=== PATIENT | male | born 1940 | race Caucasian/White ===

== ENCOUNTER → 2023-07-29 11:23 | Outpatient (REF) | payer MEDICARE, BC, SELFPAY ==
[2023-07-29 16:20] LABS: % Basophils 1.5 % (0-2); % Eosinophils 6.7 % (0-6); % Immature Granulocytes 0.4 % (0-0.5); % Lymphocytes 15.2 % (20.5-51.1); % Monocytes 8.8 % (1.7-9.3); % Neutrophils 67.4 % (42.2-75.2); Absolute Basophils 0.1 10^3/uL (0-0.2); Absolute Eosinophils 0.6 10^3/uL (0-0.7); Absolute Lymphocytes 1.4 10^3/uL (1.2-3.4); Absolute Monocytes 0.8 10^3/uL (0.1-0.6); Hematocrit 33.6 % (39.0-52.0); Hemoglobin 10.6 g/dL (13.0-18.0); Mean Corp Hgb Conc. 31.5 g/dL (33.0-37.0); Mean Corpuscular Hgb 27.2 pg (27.0-31.0); Mean Corpuscular Volume 86.4 fL (80.0-94.0); Mean Platelet Volume 10.9 fL (7.4-10.4); Nucleated Red Blood Cells % 0 % (-); Platelet Count 425 10^3/uL (130-400); Red Blood Cell Count 3.89 10^6/uL (4.70-6.10); Red Cell Dist. Width 15.6 % (11.5-14.5); Reticulocyte Count 1.4 % (0.4-2.8)
[2023-07-29 16:36] LABS: ALT (SGPT) 11 U/L (0-50); AST (SGOT) 18 U/L (17-59); Albumin 3.2 g/dl (3.5-5.0); Alkaline Phosphatase 60 U/L (38-126); Blood Urea Nitrogen 15 mg/dl (9-20); Carbon Dioxide 27 mmol/L (22-30); Chloride 102 mmol/L (98-107); Glucose 88 mg/dl (70-99); LDH 153 U/L (120-246); Potassium 4.3 mmol/L (3.5-5.1); Sodium 134 mmol/L (135-145); Total Bilirubin 0.4 mg/dl (0.2-1.3); Total Protein 6.5 g/dl (6.3-8.2); Uric Acid 5.6 mg/dl (3.5-8.5); eGFR > 60.00
[2023-07-29 16:58] LABS: TSH 2.27 uIU/ml (0.47-4.68)
[2023-08-01 22:36] LABS: Albumin 3.13 g/dL (3.75-5.01); Alpha 1 Globulin 0.38 g/dL (0.19-0.46); Alpha 2 Globulin 0.86 g/dL (0.48-1.05); Free Kappa Light Chains,Quant 26.91 mg/L (3.30-19.40); IgA 90 mg/dL (68-408); IgG 1719 mg/dL (768-1632); IgM 28 mg/dL (35-263); Immunofixation Electrophoresis IFE Done; Kappa/Lambda Fr Light Ratio 0.07 (0.26-1.65); Total Protein-Electrophoresis 6.5 g/dL (6.3-8.2)
== END ==
LOC: HWLAB 11:23
PROVIDERS: ATTENDING PHYSICIAN Internal Medicine; FAMILY PHYSICIAN Internal Medicine
DX: C90.01 Multiple myeloma in remission (principal); R41.0 Disorientation, unspecified
CPT/HCPCS: 36415; 80053; 82784; 83521; 83615; 84155; 84165; 84443; 84550; 85025; 85045; 86334

== ENCOUNTER → 2023-08-13 10:21 | Outpatient (REF) | payer MEDICARE, BC, SELFPAY ==
[2023-08-13 12:00] LABS: % Basophils 1.5 % (0-2); % Eosinophils 10.1 % (0-6); % Immature Granulocytes 0.2 % (0-0.5); % Lymphocytes 16.5 % (20.5-51.1); % Monocytes 9.1 % (1.7-9.3); % Neutrophils 62.6 % (42.2-75.2); Absolute Basophils 0.1 10^3/uL (0-0.2); Absolute Eosinophils 0.9 10^3/uL (0-0.7); Absolute Lymphocytes 1.5 10^3/uL (1.2-3.4); Absolute Monocytes 0.8 10^3/uL (0.1-0.6); Absolute Neutrophils 5.6 10^3/uL (1.4-6.5); Hematocrit 33.6 % (39.0-52.0); Hemoglobin 10.6 g/dL (13.0-18.0); Mean Corp Hgb Conc. 31.5 g/dL (33.0-37.0); Mean Corpuscular Volume 85.5 fL (80.0-94.0); Mean Platelet Volume 11.4 fL (7.4-10.4); Nucleated Red Blood Cells % 0 % (-); Platelet Count 204 10^3/uL (130-400); Red Blood Cell Count 3.93 10^6/uL (4.70-6.10); Red Cell Dist. Width 15.6 % (11.5-14.5); White Blood Cell Count 8.9 10^3/uL (4.8-10.8)
[2023-08-13 12:16] LABS: ALT (SGPT) 11 U/L (0-50); AST (SGOT) 19 U/L (17-59); Albumin 3.4 g/dl (3.5-5.0); Alkaline Phosphatase 67 U/L (38-126); Blood Urea Nitrogen 16 mg/dl (9-20); Calcium 9.1 mg/dl (8.4-10.2); Carbon Dioxide 26 mmol/L (22-30); Chloride 104 mmol/L (98-107); Glucose 99 mg/dl (70-99); HDL Cholesterol 45 mg/dl; LDL Cholesterol, Calculated 69 mg/dl; Potassium 4.2 mmol/L (3.5-5.1); Sodium 134 mmol/L (135-145); Total Bilirubin 0.4 mg/dl (0.2-1.3); Total Cholesterol 131 mg/dl (50-199); Total Protein 6.6 g/dl (6.3-8.2); Triglyceride 87 mg/dl (10-149); Very Low Density Lipoprotein 17 mg/dl (0-30); eGFR > 60.00
[2023-08-13 12:49] LABS: Ferritin 28.3 ng/ml (17.9-464.0)
[2023-08-13 13:04] LABS: Vitamin B12 436 pg/ml (239-931)
== END ==
LOC: HWLAB 10:21
PROVIDERS: ATTENDING PHYSICIAN Internal Medicine; FAMILY PHYSICIAN Internal Medicine; OTHER PHYSICIAN Internal Medicine Hematology & Oncology; REFERRING PHYSICIAN Internal Medicine Cardiovascular Disease
DX: E78.5 Hyperlipidemia, unspecified (principal); I48.19 Other persistent atrial fibrillation; C90.01 Multiple myeloma in remission; I63.9 Cerebral infarction, unspecified
CPT/HCPCS: 36415; 80053; 80061; 82607; 82728; 84153; 85025

== ENCOUNTER → 2023-08-26 10:43 | Outpatient (REF) | payer MEDICARE, BC, SELFPAY | LOC: RAD 10:43 | PROVIDERS: ATTENDING PHYSICIAN Surgery Vascular Surgery; FAMILY PHYSICIAN Internal Medicine | DX: I77.9 Disorder of arteries and arterioles, unspecified (principal) | CPT/HCPCS: 93922; 93925 ==

== ENCOUNTER → 2023-11-04 10:05 | Outpatient (REF) | payer MEDICARE, BC, SELFPAY ==
[2023-11-04 12:33] LABS: % Immature Granulocytes 0.4 % (0-0.5); % Lymphocytes 13.8 % (20.5-51.1); % Monocytes 8.3 % (1.7-9.3); % Neutrophils 69.5 % (42.2-75.2); Absolute Basophils 0.1 10^3/uL (0-0.2); Absolute Eosinophils 0.6 10^3/uL (0-0.7); Absolute Lymphocytes 1.1 10^3/uL (1.2-3.4); Absolute Monocytes 0.7 10^3/uL (0.1-0.6); Absolute Neutrophils 5.7 10^3/uL (1.4-6.5); Hemoglobin 11.2 g/dL (13.0-18.0); Mean Corpuscular Volume 81.4 fL (80.0-94.0); Mean Platelet Volume 11.6 fL (7.4-10.4); Nucleated Red Blood Cells % 0 % (-); Platelet Count 257 10^3/uL (130-400); Red Cell Dist. Width 17.3 % (11.5-14.5); Reticulocyte Count 1.2 % (0.4-2.8); White Blood Cell Count 8.2 10^3/uL (4.8-10.8)
[2023-11-04 12:56] LABS: ALT (SGPT) 14 U/L (0-50); AST (SGOT) 21 U/L (17-59); Albumin 3.6 g/dl (3.5-5.0); Alkaline Phosphatase 83 U/L (38-126); Blood Urea Nitrogen 19 mg/dl (9-20); Calcium 9.2 mg/dl (8.4-10.2); Carbon Dioxide 27 mmol/L (22-30); Chloride 104 mmol/L (98-107); Glucose 88 mg/dl (70-99); LDH 168 U/L (120-246); Potassium 4.7 mmol/L (3.5-5.1); Sodium 136 mmol/L (135-145); Total Bilirubin 0.7 mg/dl (0.2-1.3); Total Protein 6.5 g/dl (6.3-8.2); eGFR > 60.00
[2023-11-04 13:29] LABS: TSH 2.03 uIU/ml (0.47-4.68)
[2023-11-04 13:33] LABS: Ferritin 9.7 ng/ml (17.9-464.0)
[2023-11-04 13:48] LABS: Vitamin B12 492 pg/ml (239-931)
== END ==
LOC: HWLAB 10:05
PROVIDERS: ATTENDING PHYSICIAN Internal Medicine; FAMILY PHYSICIAN Internal Medicine; OTHER PHYSICIAN Internal Medicine Hematology & Oncology; REFERRING PHYSICIAN Internal Medicine Cardiovascular Disease
DX: C90.01 Multiple myeloma in remission (principal); Z12.5 Encounter for screening for malignant neoplasm of prostate; R41.0 Disorientation, unspecified; I10 Essential (primary) hypertension
CPT/HCPCS: 36415; 80053; 82607; 82728; 82784; 83521; 83615; 84155; 84165; 84443; 84550; 85025; 85045; 86334; G0103

== ENCOUNTER → 2024-03-02 11:05 | Outpatient (REF) | payer MEDICARE, BC, SELFPAY | LOC: RAD 11:05 | PROVIDERS: ATTENDING PHYSICIAN Surgery Vascular Surgery; FAMILY PHYSICIAN Internal Medicine | DX: I77.9 Disorder of arteries and arterioles, unspecified (principal) | CPT/HCPCS: 93922; 93925 ==

== ENCOUNTER → 2024-03-03 10:06 | Outpatient (REF) | payer MEDICARE, BC, SELFPAY ==
[2024-03-03 12:12] LABS: % Basophils 1.1 % (0-2); % Eosinophils 5.3 % (0-6); % Immature Granulocytes 0.3 % (0-0.5); % Lymphocytes 10.6 % (20.5-51.1); % Monocytes 7.6 % (1.7-9.3); % Neutrophils 75.1 % (42.2-75.2); Absolute Basophils 0.1 10^3/uL (0-0.2); Absolute Eosinophils 0.4 10^3/uL (0-0.7); Absolute Lymphocytes 0.8 10^3/uL (1.2-3.4); Absolute Monocytes 0.6 10^3/uL (0.1-0.6); Absolute Neutrophils 5.5 10^3/uL (1.4-6.5); Mean Corp Hgb Conc. 34.1 g/dL (33.0-37.0); Mean Corpuscular Hgb 31.2 pg (27.0-31.0); Mean Corpuscular Volume 91.3 fL (80.0-94.0); Mean Platelet Volume 11.1 fL (7.4-10.4); Nucleated Red Blood Cells % 0 % (-); Platelet Count 205 10^3/uL (130-400); Red Blood Cell Count 4.49 10^6/uL (4.70-6.10); Red Cell Dist. Width 14.2 % (11.5-14.5); Reticulocyte Count 1.4 % (0.4-2.8); White Blood Cell Count 7.4 10^3/uL (4.8-10.8)
[2024-03-03 12:46] LABS: ALT (SGPT) 14 U/L (0-50); AST (SGOT) 21 U/L (17-59); Albumin 3.4 g/dl (3.5-5.0); Alkaline Phosphatase 95 U/L (38-126); Blood Urea Nitrogen 19 mg/dl (9-20); Carbon Dioxide 30 mmol/L (22-30); Chloride 102 mmol/L (98-107); Glucose 92 mg/dl (70-99); HDL Cholesterol 47 mg/dl; LDH 163 U/L (120-246); LDL Cholesterol, Calculated 111 mg/dl; Potassium 3.6 mmol/L (3.5-5.1); Sodium 139 mmol/L (135-145); Total Bilirubin 0.9 mg/dl (0.2-1.3); Total Cholesterol 177 mg/dl (50-199); Total Protein 6.2 g/dl (6.3-8.2); Triglyceride 97 mg/dl (10-149); Uric Acid 5.4 mg/dl (3.5-8.5); Very Low Density Lipoprotein 19 mg/dl (0-30); eGFR > 60.00
[2024-03-03 13:18] LABS: TSH 2.46 uIU/ml (0.47-4.68)
== END ==
LOC: HWLAB 10:06
PROVIDERS: ATTENDING PHYSICIAN Internal Medicine Cardiovascular Disease; FAMILY PHYSICIAN Internal Medicine; REFERRING PHYSICIAN Internal Medicine
DX: I48.19 Other persistent atrial fibrillation (principal); E78.5 Hyperlipidemia, unspecified; C90.00 Multiple myeloma not having achieved remission
CPT/HCPCS: 36415; 80053; 80061; 82728; 82784; 83521; 83615; 84155; 84165; 84443; 84550; 85025; 85045; 86334

== ENCOUNTER → 2024-06-28 12:07 | Outpatient (REF) | payer MEDICARE, BC, SELFPAY ==
[2024-06-28 16:34] LABS: % Basophils 1.1 % (0-2); % Eosinophils 7.8 % (0-6); % Immature Granulocytes 0.3 % (0-0.5); % Lymphocytes 13.4 % (20.5-51.1); % Neutrophils 70.4 % (42.2-75.2); Absolute Basophils 0.1 10^3/uL (0-0.2); Absolute Eosinophils 0.7 10^3/uL (0-0.7); Absolute Lymphocytes 1.2 10^3/uL (1.2-3.4); Absolute Monocytes 0.6 10^3/uL (0.1-0.6); Absolute Neutrophils 6.3 10^3/uL (1.4-6.5); Hematocrit 41.1 % (39.0-52.0); Mean Corp Hgb Conc. 34.1 g/dL (33.0-37.0); Mean Corpuscular Hgb 31.6 pg (27.0-31.0); Mean Corpuscular Volume 92.8 fL (80.0-94.0); Mean Platelet Volume 11.4 fL (7.4-10.4); Nucleated Red Blood Cells % 0 % (-); Platelet Count 203 10^3/uL (130-400); Red Blood Cell Count 4.43 10^6/uL (4.70-6.10); Red Cell Dist. Width 13.1 % (11.5-14.5); Reticulocyte Count 1.1 % (0.4-2.8)
[2024-06-28 16:41] LABS: ALT (SGPT) 13 U/L (0-50); AST (SGOT) 23 U/L (17-59); Albumin 3.6 g/dl (3.5-5.0); Alkaline Phosphatase 150 U/L (38-126); Blood Urea Nitrogen 16 mg/dl (9-20); Calcium 9.3 mg/dl (8.4-10.2); Carbon Dioxide 30 mmol/L (22-30); Chloride 101 mmol/L (98-107); HDL Cholesterol 54 mg/dl; Iron 142 ug/dl (49-181); LDH 193 U/L (120-246); LDL Cholesterol, Calculated 121 mg/dl; Potassium 3.9 mmol/L (3.5-5.1); Sodium 134 mmol/L (135-145); Total Bilirubin 1.3 mg/dl (0.2-1.3); Total Cholesterol 196 mg/dl (50-199); Total Protein 6.7 g/dl (6.3-8.2); Triglyceride 107 mg/dl (10-149); Very Low Density Lipoprotein 21 mg/dl (0-30); eGFR > 60.00
[2024-06-28 16:45] LABS: Erythrocyte Sed Rate 7 mm/hour (0-20)
[2024-06-28 16:50] LABS: Glucose 97 mg/dl (70-99); Percent Saturation 54 % (20-50); Total Iron Binding Capacity 262 ug/dl (261-462)
[2024-06-28 17:49] LABS: Folate 5.7 ng/ml (2.76-20); Vitamin B12 418 pg/ml (239-931)
[2024-06-30 14:05] LABS: Erythropoietin (EPO) 9 mU/mL (4-27)
[2024-06-30 20:31] LABS: Beta-2-Microglobulin 3.1 mg/L (<=3.0)
[2024-06-30 22:42] LABS: Haptoglobin 119 mg/dL (30-200)
== END ==
LOC: HWLAB 12:07
PROVIDERS: ATTENDING PHYSICIAN Internal Medicine Cardiovascular Disease; FAMILY PHYSICIAN Internal Medicine; REFERRING PHYSICIAN Internal Medicine Endocrinology, Diabetes & Metabolism
DX: E78.5 Hyperlipidemia, unspecified (principal); I48.19 Other persistent atrial fibrillation; C90.00 Multiple myeloma not having achieved remission; I10 Essential (primary) hypertension
CPT/HCPCS: 80053; 80061; 82232; 82607; 82668; 82728; 82746; 82784; 83010; 83521; 83540; 83550; 83615; 84155; 84165; 85025; 85045; 85652; 86140; 86334

== ENCOUNTER → 2024-09-18 10:56 | Outpatient (REF) | payer MEDICARE, BC, SELFPAY ==
[2024-09-18 12:39] LABS: % Basophils 0.1 % (0-2); % Eosinophils 0.5 % (0-6); % Immature Granulocytes 0.4 % (0-0.5); % Lymphocytes 9.6 % (20.5-51.1); % Monocytes 8.2 % (1.7-9.3); % Neutrophils 81.2 % (42.2-75.2); Absolute Eosinophils 0.1 10^3/uL (0-0.7); Absolute Monocytes 0.8 10^3/uL (0.1-0.6); Absolute Neutrophils 8.3 10^3/uL (1.4-6.5); Hematocrit 39.1 % (39.0-52.0); Hemoglobin 13.8 g/dL (13.0-18.0); Mean Corp Hgb Conc. 35.3 g/dL (33.0-37.0); Mean Corpuscular Hgb 32.2 pg (27.0-31.0); Mean Corpuscular Volume 91.4 fL (80.0-94.0); Mean Platelet Volume 11.1 fL (7.4-10.4); Nucleated Red Blood Cells % 0 % (-); Platelet Count 220 10^3/uL (130-400); Red Blood Cell Count 4.28 10^6/uL (4.70-6.10); Red Cell Dist. Width 13.4 % (11.5-14.5); Reticulocyte Count 1.5 % (0.4-2.8); White Blood Cell Count 10.2 10^3/uL (4.8-10.8)
[2024-09-18 13:37] LABS: ALT (SGPT) 14 U/L (0-50); AST (SGOT) 21 U/L (17-59); Alkaline Phosphatase 192 U/L (38-126); Blood Urea Nitrogen 33 mg/dl (9-20); Calcium 8.8 mg/dl (8.4-10.2); Carbon Dioxide 22 mmol/L (22-30); Chloride 107 mmol/L (98-107); Glucose 101 mg/dl (70-99); LDH 181 U/L (120-246); Potassium 3.5 mmol/L (3.5-5.1); Sodium 138 mmol/L (135-145); Total Bilirubin 0.7 mg/dl (0.2-1.3); Total Protein 7.1 g/dl (6.3-8.2); Uric Acid 5.9 mg/dl (3.5-8.5); eGFR 54.51
[2024-09-18 13:49] LABS: TSH 3.35 uIU/ml (0.47-4.68)
[2024-09-18 13:53] LABS: Ferritin 86.1 ng/ml (17.9-464.0)
== END ==
LOC: HWLAB 10:56
PROVIDERS: ATTENDING PHYSICIAN Internal Medicine; FAMILY PHYSICIAN Internal Medicine; OTHER PHYSICIAN Internal Medicine Hematology & Oncology; REFERRING PHYSICIAN Internal Medicine Cardiovascular Disease
DX: C90.00 Multiple myeloma not having achieved remission (principal); I48.21 Permanent atrial fibrillation; F05 Delirium due to known physiological condition
CPT/HCPCS: 36415; 80053; 82728; 82784; 83521; 83615; 84155; 84165; 84443; 84550; 85025; 85045; 86334

== ENCOUNTER → 2024-09-20 08:33 | Outpatient (REF) | payer MEDICARE, BC, SELFPAY | LOC: RAD 08:33 | PROVIDERS: ATTENDING PHYSICIAN Surgery Vascular Surgery; FAMILY PHYSICIAN Internal Medicine | DX: I73.9 Peripheral vascular disease, unspecified (principal); I65.21 Occlusion and stenosis of right carotid artery | CPT/HCPCS: 93880; 93922 ==

== ENCOUNTER 2025-03-06 09:34 | Inpatient (IN) | payer MEDICARE, BC, SELFPAY ==
[2025-03-02 10:06] VITALS: BP 115/76
[2025-03-02] MEDS: OMNIPAQUE 50 ML PO (11:19)
--- NOTE | 2025-03-02 11:20 | ED.GENMED ---
History of Present Illness
<Lashon Marino PA-C - Last Filed: 03/02/25 13:59>
General
Chief Complaint: Abnormal Lab Value
Source: patient and family
Exam Limitations: none
Time Seen by Provider: 03/02/25 10:58
History of Present Illness
History of Present Illness:
84yoM with a history of multiple myeloma on dexamethasone, atrial fibrillation on Eliquis, prior CVA, hypertension, hyperlipidemia presenting at the direction of his surgical team for admission. Patient has had a right inguinal hernia for many
years which has slowly gotten bigger. He was seen by Dr. Espana as an outpatient who recommended surgery. Surgery is scheduled for Wednesday. He had cardiac clearance and his desizing machine operator recommended that his Eliquis be transitioned to a heparin
infusion 2 days prior to the surgery. Patient reports decreased appetite which he attributes to the surgery and he has lost about 12 pounds. He denies any vomiting, chest pain, shortness of breath. Last bowel movement was yesterday. He had an
echocardiogram done 2 days ago which showed normal ejection fraction.
Past History
<Lashon Marino PA-C - Last Filed: 03/02/25 13:59>
Past History
ED Past Medical History: Arrthythmia, CVA and Other
Social History
Tobacco: Non-smoker
Alcohol: None
Drug: Marijuana
Personal:
Living: with family
Family History
Family History: Other (reviewed and noncontributory)
Phy Exam
<Lashon Marino PA-C - Last Filed: 03/02/25 13:59>
General Physical Exam
General Presentation: well appearing and no apparent distress
General Skin: warm and dry
General Habitus: normal and elderly
General Mental: alert
ENT Exam
ENT Exam: normocephalic
Cardiovascular Exam
Cardiovascular Exam: regular rate/rhythm
Pulmonary Exam
Pulmonary Exam: lungs clear, no respiratory distress, no rales, no crackles, no rhonchi and no wheezing
Gastrointestinal Exam
Gastrointestinal Exam: non tender, soft, non distended and other (Large R inguinal hernia noted that is non-reducible but non-tender. )
Neurological Exam
Neurological Exam: alert
[place] Coma Scale
Eye Opening: Spontaneous
Verbal Response: Oriented
Motor Response: Obeys Commands
GCS Total Score: 15
Skin Exam
Skin Exam: normal color and warm/dry
Psychiatric Exam
Psychiatric Exam: normal mood/affect
Course
<aLshon Marino PA-C - Last Filed: 03/02/25 13:59>
Orders/Labs/Results
Orders:
Orders
03/02/25 11:11
Iohexol [Omnipaque] See Protocol PO NOW STA
03/02/25 11:12
CT Abd/pel W Iv And Oral Contr Urgent
Comment:
Reason For Exam: hernia, preop planning
03/02/25 11:20
SURGICAL CONSULT Urgent
Consulting Provider: Tye Espana
Was physician already notified: Yes
03/02/25 11:30
Complete Blood Count/With Diff Urgent
Comprehensive Metabolic Panel Urgent
PTT Urgent
Prothrombin Time Urgent
03/02/25 12:45
Admit/Transfer Patient As Directed
Co-Sign Provider:
Level of Care: Observation services
Assign to:: Medical/Surgical
Physician / Group: mt
Diagnosis: incarcerated hernia
PRN Pain Medication Management As Directed
May give lesser potent ordered pain med per pt: Yes
preference::
Protocol:: Medication orders for pain may be administered in a
manner that supports deferring to patient preference
when the pt is:
- Requesting an ordered lesser potent pain medication.
Least to most potent pain medications are defined
as: acetaminophen < NSAID < tramadol < opioids
(morphine, oxycodone, hydromorphone).
- Requesting a lesser dose of the same medication IF
ORDERED.
- Requesting a less intrusive route of administration
if both routes are prescribed by the provider (PO <
IV).
03/02/25 12:46
Code Status As Directed
Resuscitation Status: Full Code
03/02/25 12:47
Complete Blood Count/No Diff Urgent
Comment: Obtain baseline before beginning heparin infusion if not already collected
Heparin Protocol- PTT Orders As Directed
PTT per Heparin protocol: -Obtain CBC and baseline PTT - if not already collected.
-Obtain PTT 6 hours from start of infusion. Then, every 6 hours until 2 consecutive
PTT's are therapeutic. Then, PTT Daily.
-With each rate change, obtain PTT every 6 hours until 2 consecutive PTT's are
therapeutic. Then, PTT Daily.
Notify MD As Directed
Notify physician if: PTT is greater than or equal to 200.
03/02/25 13:00
Heparin 47570 Units/250 ml 25,000 units in 250 ml IV PER PROTOCOL
Weight to be used for heparin protocol in kilograms (kg):: 64.6
Protocol:: Cardiac Tx/Acute Coronary
PTT Goal Range to be used:: PTT 73 to 111 seconds
Order type:: Initial
INITIAL Infusion Dose (UNITS/KG/hr) & then follow protocol:: 12 units/kg/hr
Infusion Dose in UNITS/hr & then follow protocol (UNITS/hr):: 800
INFUSION RATE in mL/hr & then follow protocol (mL/hr):: 8
PTT less than or equal to 64 seconds:: Increase rate by 200 units/hr (+ 2 mL/hr)
PTT 64.1 to 72.9 seconds:: Increase rate by 100 units/hr (+ 1 mL/hr)
PTT 73 to 111 seconds:: Target Range. No change in rate.
PTT 111.1 to 130.9 seconds:: Decrease rate by 100 units/hr (- 1 mL/hr)
PTT 131 to 199.9 seconds:: HOLD for 1 hr. Then decrease rate by 200 units/hr (- 2 mL/hr)
PTT greater than or equal to 200 seconds:: HOLD for 2 hrs & Notify Provider. Then decrease by 200 units/hr (-
2 mL/hr)
Lab follow-up:: Each change, PTT q6h until 2 consecutive are therapeutic. Then PTT
daily.
03/02/25 21:00
Heparin 90887 Units/250 ml 25,000 units in 250 ml IV PER PROTOCOL
Weight to be used for heparin protocol in kilograms (kg):: 64.6
Protocol:: Cardiac Tx/Acute Coronary
PTT Goal Range to be used:: PTT 73 to 111 seconds
Order type:: Initial
INITIAL Infusion Dose (UNITS/KG/hr) & then follow protocol:: 12 units/kg/hr
Infusion Dose in UNITS/hr & then follow protocol (UNITS/hr):: 800
INFUSION RATE in mL/hr & then follow protocol (mL/hr):: 8
PTT less than or equal to 64 seconds:: Increase rate by 200 units/hr (+ 2 mL/hr)
PTT 64.1 to 72.9 seconds:: Increase rate by 100 units/hr (+ 1 mL/hr)
PTT 73 to 111 seconds:: Target Range. No change in rate.
PTT 111.1 to 130.9 seconds:: Decrease rate by 100 units/hr (- 1 mL/hr)
PTT 131 to 199.9 seconds:: HOLD for 1 hr. Then decrease rate by 200 units/hr (- 2 mL/hr)
PTT greater than or equal to 200 seconds:: HOLD for 2 hrs & Notify Provider. Then decrease by 200 units/hr (-
2 mL/hr)
Lab follow-up:: Each change, PTT q6h until 2 consecutive are therapeutic. Then PTT
daily.
03/04/25 06:00
Complete Blood Count/No Diff Q2D
Comment: Notify MD if platelet count is <130,000 or decreases by 50% from baseline
03/06/25 06:00
Complete Blood Count/No Diff Q2D
Comment: Notify MD if platelet count is <130,000 or decreases by 50% from baseline
03/08/25 06:00
Complete Blood Count/No Diff Q2D
Comment: Notify MD if platelet count is <130,000 or decreases by 50% from baseline
03/10/25 06:00
Complete Blood Count/No Diff Q2D
Comment: Notify MD if platelet count is <130,000 or decreases by 50% from baseline
03/12/25 06:00
Complete Blood Count/No Diff Q2D
Comment: Notify MD if platelet count is <130,000 or decreases by 50% from baseline
03/14/25 06:00
Complete Blood Count/No Diff Q2D
Comment: Notify MD if platelet count is <130,000 or decreases by 50% from baseline
03/16/25 06:00
Complete Blood Count/No Diff Q2D
Comment: Notify MD if platelet count is <130,000 or decreases by 50% from baseline
03/18/25 06:00
Complete Blood Count/No Diff Q2D
Comment: Notify MD if platelet count is <130,000 or decreases by 50% from baseline
Abnormal Lab Results
03/02/25
11:30
RBC 3.84 L 10^6/uL
(4.70-6.10)
Hgb 12.0 L g/dL
(13.0-18.0)
Hct 36.1 L %
(39.0-52.0)
MCH 31.3 H pg
(27.0-31.0)
Abs Immat Gran (auto) 0.1 H 10^3/uL
(0-0.05)
Absolute Lymphs (auto) 1.0 L 10^3/uL
(1.2-3.4)
Immature Gran % 0.6 H %
(0-0.5)
Lymphocytes % 12.4 L %
(20.5-51.1)
PT 16.8 H Sec
(11.4-14.6)
Sodium 133 L mmol/L
(135-145)
Carbon Dioxide 31 H mmol/L
(22-30)
BUN 21 H mg/dl
(9-20)
Alkaline Phosphatase 419 H U/L
(38-126)
Total Protein 6.0 L g/dl
(6.3-8.2)
Albumin 3.1 L g/dl
(3.5-5.0)
03/02/25 11:30
Vital Signs
Initial and Last Documented VS:
Initial Vital Signs
Temp Pulse Resp BP Pulse Ox
97.8 F 96 18 115/76 99
03/02/25 10:06 03/02/25 10:06 03/02/25 10:06 03/02/25 10:06 03/02/25 10:06
Last Documented Vital Signs
Temp Pulse Resp BP Pulse Ox
97.8 F 87 25 129/108 99
03/02/25 10:06 03/02/25 13:34 03/02/25 13:34 03/02/25 13:34 03/02/25 13:34
<Tere Knight MD - Last Filed: 03/02/25 12:17>
Orders/Labs/Results
Orders:
Orders
03/02/25 11:11
Iohexol [Omnipaque] See Protocol PO NOW STA
03/02/25 11:12
CT Abd/pel W Iv And Oral Contr Urgent
Comment:
Reason For Exam: hernia, preop planning
03/02/25 11:20
SURGICAL CONSULT Urgent
Consulting Provider: Tye Espana
Was physician already notified: Yes
03/02/25 11:30
Complete Blood Count/With Diff Urgent
Comprehensive Metabolic Panel Urgent
PTT Urgent
Prothrombin Time Urgent
03/02/25 12:45
Admit/Transfer Patient As Directed
Co-Sign Provider:
Level of Care: Observation services
Assign to:: Medical/Surgical
Physician / Group: mt
Diagnosis: incarcerated hernia
PRN Pain Medication Management As Directed
May give lesser potent ordered pain med per pt: Yes
preference::
Protocol:: Medication orders for pain may be administered in a
manner that supports deferring to patient preference
when the pt is:
- Requesting an ordered lesser potent pain medication.
Least to most potent pain medications are defined
as: acetaminophen < NSAID < tramadol < opioids
(morphine, oxycodone, hydromorphone).
- Requesting a lesser dose of the same medication IF
ORDERED.
- Requesting a less intrusive route of administration
if both routes are prescribed by the provider (PO <
IV).
03/02/25 12:46
Code Status As Directed
Resuscitation Status: Full Code
03/02/25 12:47
Complete Blood Count/No Diff Urgent
Comment: Obtain baseline before beginning heparin infusion if not already collected
Heparin Protocol- PTT Orders As Directed
PTT per Heparin protocol: -Obtain CBC and baseline PTT - if not already collected.
-Obtain PTT 6 hours from start of infusion. Then, every 6 hours until 2 consecutive
PTT's are therapeutic. Then, PTT Daily.
-With each rate change, obtain PTT every 6 hours until 2 consecutive PTT's are
therapeutic. Then, PTT Daily.
Notify MD As Directed
Notify physician if: PTT is greater than or equal to 200.
03/02/25 13:00
Heparin 40378 Units/250 ml 25,000 units in 250 ml IV PER PROTOCOL
Weight to be used for heparin protocol in kilograms (kg):: 64.6
Protocol:: Cardiac Tx/Acute Coronary
PTT Goal Range to be used:: PTT 73 to 111 seconds
Order type:: Initial
INITIAL Infusion Dose (UNITS/KG/hr) & then follow protocol:: 12 units/kg/hr
Infusion Dose in UNITS/hr & then follow protocol (UNITS/hr):: 800
INFUSION RATE in mL/hr & then follow protocol (mL/hr):: 8
PTT less than or equal to 64 seconds:: Increase rate by 200 units/hr (+ 2 mL/hr)
PTT 64.1 to 72.9 seconds:: Increase rate by 100 units/hr (+ 1 mL/hr)
PTT 73 to 111 seconds:: Target Range. No change in rate.
PTT 111.1 to 130.9 seconds:: Decrease rate by 100 units/hr (- 1 mL/hr)
PTT 131 to 199.9 seconds:: HOLD for 1 hr. Then decrease rate by 200 units/hr (- 2 mL/hr)
PTT greater than or equal to 200 seconds:: HOLD for 2 hrs & Notify Provider. Then decrease by 200 units/hr (-
2 mL/hr)
Lab follow-up:: Each change, PTT q6h until 2 consecutive are therapeutic. Then PTT
daily.
03/02/25 21:00
Heparin 23864 Units/250 ml 25,000 units in 250 ml IV PER PROTOCOL
Weight to be used for heparin protocol in kilograms (kg):: 64.6
Protocol:: Cardiac Tx/Acute Coronary
PTT Goal Range to be used:: PTT 73 to 111 seconds
Order type:: Initial
INITIAL Infusion Dose (UNITS/KG/hr) & then follow protocol:: 12 units/kg/hr
Infusion Dose in UNITS/hr & then follow protocol (UNITS/hr):: 800
INFUSION RATE in mL/hr & then follow protocol (mL/hr):: 8
PTT less than or equal to 64 seconds:: Increase rate by 200 units/hr (+ 2 mL/hr)
PTT 64.1 to 72.9 seconds:: Increase rate by 100 units/hr (+ 1 mL/hr)
PTT 73 to 111 seconds:: Target Range. No change in rate.
PTT 111.1 to 130.9 seconds:: Decrease rate by 100 units/hr (- 1 mL/hr)
PTT 131 to 199.9 seconds:: HOLD for 1 hr. Then decrease rate by 200 units/hr (- 2 mL/hr)
PTT greater than or equal to 200 seconds:: HOLD for 2 hrs & Notify Provider. Then decrease by 200 units/hr (-
2 mL/hr)
Lab follow-up:: Each change, PTT q6h until 2 consecutive are therapeutic. Then PTT
daily.
03/04/25 06:00
Complete Blood Count/No Diff Q2D
Comment: Notify MD if platelet count is <130,000 or decreases by 50% from baseline
03/06/25 06:00
Complete Blood Count/No Diff Q2D
Comment: Notify MD if platelet count is <130,000 or decreases by 50% from baseline
03/08/25 06:00
Complete Blood Count/No Diff Q2D
Comment: Notify MD if platelet count is <130,000 or decreases by 50% from baseline
03/10/25 06:00
Complete Blood Count/No Diff Q2D
Comment: Notify MD if platelet count is <130,000 or decreases by 50% from baseline
03/12/25 06:00
Complete Blood Count/No Diff Q2D
Comment: Notify MD if platelet count is <130,000 or decreases by 50% from baseline
03/14/25 06:00
Complete Blood Count/No Diff Q2D
Comment: Notify MD if platelet count is <130,000 or decreases by 50% from baseline
03/16/25 06:00
Complete Blood Count/No Diff Q2D
Comment: Notify if platelet count is <130,000 or decreases by 50% from baseline
03/18/25 06:00
Complete Blood Count/No Diff Q2D
Comment: Notify MD if platelet count is <130,000 or decreases by 50% from baseline
Abnormal Lab Results
03/02/25
11:30
RBC 3.84 L 10^6/uL
(4.70-6.10)
Hgb 12.0 L g/dL
(13.0-18.0)
Hct 36.1 L %
(39.0-52.0)
MCH 31.3 H pg
(27.0-31.0)
Abs Immat Gran (auto) 0.1 H 10^3/uL
(0-0.05)
Absolute Lymphs (auto) 1.0 L 10^3/uL
(1.2-3.4)
Immature Gran % 0.6 H %
(0-0.5)
Lymphocytes % 12.4 L %
(20.5-51.1)
PT 16.8 H Sec
(11.4-14.6)
Sodium 133 L mmol/L
(135-145)
Carbon Dioxide 31 H mmol/L
(22-30)
BUN 21 H mg/dl
(9-20)
Alkaline Phosphatase 419 H U/L
(38-126)
Total Protein 6.0 L g/dl
(6.3-8.2)
Albumin 3.1 L g/dl
(3.5-5.0)
03/02/25 11:30
Vital Signs
Initial and Last Documented VS:
Initial Vital Signs
Temp Pulse Resp BP Pulse Ox
97.8 F 96 18 115/76 99
03/02/25 10:06 03/02/25 10:06 03/02/25 10:06 03/02/25 10:06 03/02/25 10:06
Last Documented Vital Signs
Temp Pulse Resp BP Pulse Ox
97.8 F 87 25 129/108 99
03/02/25 10:06 03/02/25 13:34 03/02/25 13:34 03/02/25 13:34 03/02/25 13:34
<Lashon Marino PA-C - Last Filed: 03/02/25 13:59>
MDM/Problems Addressed
Differential Diagnosis Includes:
84yoM here for admission. Inguinal hernia repair scheduled for Wednesday. Needs heparin drip x 48 hours prior to surgery per his desizing machine operator. No obstructive symptoms. Had normal BM yesterday. VSS. Large inguinal hernia noted on exam that is
non-reducible but non-tender.
Case discussed with general surgery team who recommends CT scan and admission to the hospitalist service. Patient admitted for further management.
<Lashon Marino PA-C - Last Filed: 03/02/25 13:59>
*Pulse Oximetry
SaO2: 99
Oxygen Mode of Delivery: Room air
Patient hypoxic: no
*Critical Care Note
Total Time (30-74mins, 75-104mins- exclusive of procedures): Not Applicable
ED Attending Note
<Lashon Marino PA-C - Last Filed: 03/02/25 13:59>
-
Portions of this chart may have been created with voice recognition software.� Occasional wrong word or��sound alike� substitutions may have occurred due to the inherent limitations of voice recognition software.
<Tere Knight MD - Last Filed: 03/02/25 12:17>
ED Attending Note
Patient seen and examined by attending physician: Yes
I performed the substantive portion of visit, reviewed & personally made and approve the management plan that is documented in note by myself or ADITHYA.: Yes
ED Attending Note:
Patient appears well and comfortable. Right inguinal hernia soft and nontender. Patient is breathing comfortably.
Discharge Plan
Departure
Patient Disposition: Admit
Date of Disposition: 03/02/25
Time of Disposition: 12:10
Presentation/result/management discussed w/ accepting MD/DO: Hospitalist
Discharge Problem:
Right inguinal hernia
[2025-03-02 11:29] VITALS: BP 157/93
[2025-03-02 11:40] LABS: Hematocrit 36.1 % (39.0-52.0); Hemoglobin 12.0 g/dL (13.0-18.0); Mean Corp Hgb Conc. 33.2 g/dL (33.0-37.0); Mean Corpuscular Volume 94.0 fL (80.0-94.0); Nucleated Red Blood Cells % 0 % (-); Platelet Count 242 10^3/uL (130-400); Red Cell Dist. Width 13.7 % (11.5-14.5)
[2025-03-02 11:49] LABS: INR 1.34; PT 16.8 Sec (11.4-14.6)
[2025-03-02 11:50] LABS: APTT 30.2 Sec (23.4-35.0)
[2025-03-02 11:56] VITALS: BMI 23.0
[2025-03-02 12:00] VITALS: BP 159/89
[2025-03-02 12:07] LABS: ALT (SGPT) < 10 U/L (0-50); AST (SGOT) 21 U/L (17-59); Albumin 3.1 g/dl (3.5-5.0); Alkaline Phosphatase 419 U/L (38-126); Blood Urea Nitrogen 21 mg/dl (9-20); Calcium 8.6 mg/dl (8.4-10.2); Carbon Dioxide 31 mmol/L (22-30); Chloride 102 mmol/L (98-107); Estimated Creatinine Clearance 51 ml/min; Glucose 94 mg/dl (70-99); Potassium 4.4 mmol/L (3.5-5.1); Sodium 133 mmol/L (135-145); Total Protein 6.0 g/dl (6.3-8.2); eGFR > 60.00
--- NOTE | 2025-03-02 12:13 | HPS.HSE ---
Addendum entered and electronically signed by Silvestre Buckley MD 03/02/25 13:22:
This is an addendum to H&P written by Marlene Rangel on 03/02/25. �Patient seen and examined independently with TIGHT BARREL INSPECTOR.
84-year-old male past medical history of multiple myeloma, atrial fibrillation on Eliquis, prior CVA, hypertension, hyperlipidemia, BPH, presenting upon recommendation of his account engineer Dr. Flores for anticoagulation with heparin 2 days while Eliquis
is being held prior to planned right inguinal hernia surgery in [address] Espana of general surgery.
Last Eliquis dose this morning.��
Echocardiogram 2 days ago normal.
He has decreased appetite with 12 pound weight loss. �No abdominal pain. �Denies vomiting chest pain or shortness of breath. �Last bowel movement yesterday.
Vital signs unremarkable. �On physical examination hernia nontender and no signs of incarceration.
Labs unremarkable.
Patient to be admitted for heparin drip without bolus for stroke prevention while off of Eliquis for right inguinal hernia surgery on Wednesday.
CT abdomen pelvis pending.
General surgery consulted.
Addendum entered and electronically signed by SUDHAKAR Rojas 03/02/25 12:52:
heparin to be started at 2100, last dose eliquis was at 9am today.
Original Note:
Family Physician
-
Family Physician: Omar Calloway
Chief Complaint
-
incarcerated hernia
History of Present Illness
84yoM with a history of multiple myeloma on dexamethasone, atrial fibrillation on Eliquis, prior CVA, hypertension, hyperlipidemia presenting at the direction of his surgical team for admission. Patient has had a right inguinal hernia for many
years which has slowly gotten bigger. patient denied any pain. denied fever, chills, [place], dizzy or syncope. denied chest pain, sob. denied n,v,d. denied dysuria or hematuria. He was seen by Dr. Espana as an outpatient who recommended surgery.
Surgery is scheduled for Wednesday. He had cardiac clearance and his account engineer recommended that his Eliquis be transitioned to a heparin infusion 2 days prior to the surgery.
admitting for further management.
Medical History
Past Medical History
Past Medical History: Reports Other
Additional Past Medical History:
Abnormal aortic aneurysm, hyperlipidemia, multiple myeloma, peripheral artery disease, aortic insufficiency, hypertension, dyslipidemia, CVA, orthostatic hypotension, inguinal hernia, hypertension, CKD
Past Surgical History: Reports Other
Additional Past Surgical History:
Bilateral cataract surgery, appendectomy
Social History
Tobacco: Former Smoker
Alcohol: Occasional
Drug: None
Personal:
Living: With Family
Family History
Family History: Not pertinent
Allergies / Home Medications
Allergies reflects when Allergies were last updated in [employer].
Home Medications with original date entered in [employer]
Allergy/Medication List:
Allergies
Allergy/AdvReac Type Severity Reaction Status Date / Time
diphenhydramine AdvReac Mild Unknown Verified 03/02/25 10:03
loratadine (From Claritin) AdvReac Mild Unknown Verified 03/02/25 10:03
Home Medications
aspirin 81 mg chewable tablet 81 mg PO DAILY #30 tabs 10/31/20
docusate sodium 100 mg capsule 100 mg PO BID #60 caps 10/31/20
tamsulosin 0.4 mg capsule 0.4 mg PO HS #30 caps 10/31/20
acetaminophen 325 mg tablet 650 mg PO Q6HPRN PRN mild PAIN 03/02/25
apixaban 2.5 mg tablet (Eliquis) 2.5 mg PO BID 03/02/25
atorvastatin 10 mg tablet 5 mg PO DAILY 03/02/25
cholecalciferol (vitamin D3) 25 mcg (1,000 unit) tablet (Vitamin D3) 25 mcg PO DAILY 03/02/25
ferrous sulfate 325 mg (65 mg iron) tablet 325 mg PO BID 03/02/25
finasteride 5 mg tablet 5 mg PO DAILY 03/02/25
metoprolol tartrate 100 mg tablet (Lopressor) 100 mg PO BID 03/02/25
Review of Systems
-
Constitutional: Reports No Symptoms
EENT: Reports No Symptoms
Respiratory: Reports No Symptoms
Cardiac: Reports No Symptoms
Abdomen/GI: Reports No Symptoms
: Reports No Symptoms
Musculoskeletal: Reports No Symptoms
Skin: Reports No Symptoms
Neurological: Reports No Symptoms
Endocrine: Reports No Symptoms
Hematologic/Lymphatic: Reports No Symptoms
Psych: Reports No Symptoms
Physical Exam
Vital Signs
Vital Signs
Temp Pulse Resp BP Pulse Ox
97.8 F 84 23 159/89 99
03/02/25 10:06 03/02/25 12:00 03/02/25 12:00 03/02/25 12:00 03/02/25 12:00
Physical Exam
General: Well Developed, Well Nourished and No Apparent Distress
HEENT: NormoCephalic, Moist mucous membranes and Atraumatic
Respiratory: Clear
Cardiac: S1/S2 and Regular Rhythm; No Murmur or Rub
GI: Soft, Non Tender, Non Distended and Normal Bowel Sounds; No Organomegaly
Rectal: Deferred by Provider
Musculoskeletal: No Clubbing, No Cyanosis and No Edema
Skin: No Rash
Neuro: AO x 3 and Nonfocal/grossly intact
Psych: Calm
Laboratory Results
-
03/02/25 11:30
03/02/25 11:30
Laboratory Results
PT 16.8 Sec (11.4-14.6) H 03/02/25 11:30
INR 1.34 03/02/25 11:30
APTT 30.2 Sec (23.4-35.0) 03/02/25 11:30
Total Bilirubin 0.6 mg/dl (0.2-1.3) 03/02/25 11:30
AST 21 U/L (17-59) 03/02/25 11:30
ALT < 10 U/L (0-50) 03/02/25 11:30
Alkaline Phosphatase 419 U/L (38-126) H 03/02/25 11:30
Data Reviewed
-
Lab Data: Labs Reviewed by me
Impression/Plan
-
# concern for Right incarcerated inguinal hernia
- Plan for surgery on Wednesday
- Surgery following patient
-CT abdomen pelvis pending.
# History of A-fib
-Heparin drip continued
-hold eliquis
- Metoprolol continue
# History of CVA
- On aspirin and statin
# BPH
- Finasteride, Flomax continue
# Multiple myeloma
- On dexamethasone as outpatient
- Follows at [facility]
# DVT prophylaxis
- Heparin
# CODE STATUS
- Full code
--- NOTE | 2025-03-02 12:42 | CON.GS ---
Addendum entered and electronically signed by Tye Espana MD 03/02/25 16:34:
I saw and examined the patient independently.
The Longshore Equipment Operator's note was reviewed and I agree with the note, assessment and plan except where noted below.
Comment: This is an 84-year-old male who presents with an enlarging known incarcerated right inguinal hernia that has become more painful. He denies obstructive symptoms and has no evidence of strangulation on exam, however given his multiple
comorbidities and anticoagulation in the setting of A-fib and known perioperative strokes when off anticoagulation we will admit him for preoperative management before undertaking a repair on Wednesday.
Will plan for a robotic/open right inguinal hernia repair with mesh.
Okay for diet, n.p.o. at midnight Wednesday
No antibiotics, 2 g of Ancef on-call to the OR for Wednesday.
Cards consults, hold Eliquis. Can transition to heparin drip versus Lovenox further recommendations.
Patient and family agreeable to plan of care above.
Original Note:
Consultation
-
Date/Time Consultation Performed: 03/02/25 1210
Requesting Provider: ED
Performing Provider: Valerie Espana
Medical History
-
Chief Complaint: hernia discomfort
History of Present Illness:
Mr Turk is an 84 yo male with a h/o multiple myeloma on decadron, afib on Eliquis (LD this am), prior CVA and known right inguinal hernia who presents for ongoing discomfort and irritation to the site. He was initiallyl hesitant to pursue surgery
but notes the hernia has become more bothersome. He reports that as the day goes one, his hernia increases in size with scrotal swelling. Rest and elevation do help but with quick recurrence. He denies nausea and vomiting but does note some gradual
weight loss and anorexia. He was able to pass a regular BM yesterday.
Past Medical History
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
Past Surgical History: Appendectomy and Other (cataracts)
Social History
Tobacco: Non-Smoker
Alcohol: None
Personal:
Living: With Family
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
Family History
Family History: Reviewed & Not Pertinent
Allergies / Home Medications
Allergy/AdvReac Type Severity Reaction Status Date / Time
diphenhydramine AdvReac Mild Unknown Verified 03/02/25 10:03
loratadine (From Claritin) AdvReac Mild Unknown Verified 03/02/25 10:03
�Medication �Instructions �Recorded �Confirmed �Type
aspirin 81 mg chewable tablet 81 mg PO DAILY #30 tabs 10/31/20 03/02/25 Rx
docusate sodium 100 mg capsule 100 mg PO BID #60 caps 10/31/20 03/02/25 Rx
tamsulosin 0.4 mg capsule 0.4 mg PO HS #30 caps 10/31/20 03/02/25 Rx
acetaminophen 325 mg tablet 650 mg PO Q6HPRN PRN mild PAIN 03/02/25 03/02/25 History
apixaban 2.5 mg tablet (Eliquis) 2.5 mg PO BID 03/02/25 03/02/25 History
atorvastatin 10 mg tablet 5 mg PO DAILY 03/02/25 03/02/25 History
cholecalciferol (vitamin D3) 25 25 mcg PO DAILY 03/02/25 03/02/25 History
mcg (1,000 unit) tablet (Vitamin
D3)
ferrous sulfate 325 mg (65 mg 325 mg PO BID 03/02/25 03/02/25 History
iron) tablet
finasteride 5 mg tablet 5 mg PO DAILY 03/02/25 03/02/25 History
metoprolol tartrate 100 mg tablet 100 mg PO BID 03/02/25 03/02/25 History
(Lopressor)
Review of Systems
-
History Source: Patient and Family
All other systems: Negative unless noted
A 10 point review of systems was completed, and was negative except as per HPI.
Physical Exam
Vital Signs
Temp Pulse Resp BP Pulse Ox
97.8 F 84 23 159/89 99
03/02/25 10:06 03/02/25 12:00 03/02/25 12:00 03/02/25 12:00 03/02/25 12:00
03/01/25 03/02/25 03/03/25
06:59 06:59 06:59
Actual Weight 64.6 kg
Body Mass Index (BMI) 23.0
Lab Results
03/02/25 11:30
03/02/25 11:30
WBC 8.3 10^3/uL (4.8-10.8) 03/02/25 11:30
Hgb 12.0 g/dL (13.0-18.0) L 03/02/25 11:30
Hct 36.1 % (39.0-52.0) L 03/02/25 11:30
Plt Count 242 10^3/uL (130-400) 03/02/25 11:30
Abs Immat Gran (auto) 0.1 10^3/uL (0-0.05) H 03/02/25 11:30
Neutrophils % 72.2 % (42.2-75.2) 03/02/25 11:30
Physical Exam
General: Well Developed
HEENT: Normocephalic
Respiratory: Non Labored Respirations
GI: Soft, Non Tender and Non Distended
Genito-urinary: Inguinal Hernia (right)
Neuro: Awake, Alert and AO x 3
Psych: Calm
Data Reviewed
-
Labs: Labs Reviewed by me, Discussed with Physician, Discussed with Patient and Discussed with Family
Old Records: Reviewed
Assessment / Plan
-
84 yo male with h/o multiple myeloma on decadron, afib on Eliquis (LD this am), prior CVA who presents for management of chronically incarcerated inguinal hernia with worsening symptoms. He underwent a recent cards eval with Dr. Augusto Flores for
cardiac clearance (elevated but acceptable risk per OP note) who recommended bridging AC with IV heparin while Eliquis held for surgery as he has had prior thromboembolic events. 2D echo preformed on on 02/28/25 with normal EF and stable valvular
dz.
Plan:
Given multiple comorbid conditions, would recommend admission to hospitalist service for medical optimization
Hold Eliquis (LD this am) with plans for bridge leading up to surgery.
Plan for inguinal hernia repair Wednesday after Eliquis washout.
Ok for regular diet from surgical standpoint, NPO after MN for OR wednesday
[2025-03-02 13:34] VITALS: BP 129/108
--- NOTE | 2025-03-02 14:15 | CM ---
Patient seen at bedside in ED with and daughter. Patient states he is for surgery on wednesday and lives with in a one story home. Patient has no DME and patient uses the [facility] in [place] [address] Patient PCP is Dr. shafer.
Patient plan is for discharge home with no needs anticipated at this time. CM will continue to follow for discharge planning needs.
Plan; home with no needs vs home with VN; pending medical treatment plan
[2025-03-02 14:44] VITALS: BP 111/79
[2025-03-02 14:45] VITALS: BMI 21.0
[2025-03-02 15:06] VITALS: BMI 21.0
--- NOTE | 2025-03-02 16:15 | PTCARENOTE ---
Pt arrived 1430 from ED. Pt was able to ambulate into room. VSS. Large inguinal hernia present. Oriented to room and call renteria. bed locked and in lowest position.
[2025-03-02] MEDS: LOPRESSOR 100 MG PO (21:10)
[2025-03-02] MEDS: COLACE 100 MG PO (21:10)
[2025-03-02] MEDS: FEOSOL 325 MG PO (21:10)
[2025-03-02] MEDS: FLOMAX 0.4 MG PO (21:12)
[2025-03-02 23:20] VITALS: BP 149/90
[2025-03-03 03:25] LABS: APTT 60.0 Sec (23.4-35.0)
[2025-03-03 07:25] VITALS: BP 135/85
--- NOTE | 2025-03-03 08:55 | W.PN.HOSP.TC ---
Today's Communication/Plan
-
see plan
Assessment / Plan
Assessment / Plan
Gen: NAD, AAOx3.
Eyes: EOMI, PERRLA, no scleral icterus.
Neck: supple.
CV: irreg/irreg, +S1/S2, no m/r/g.
Resp: CTAB, no rales, wheezes, or rhonchi.
Abd: +BS, soft, NT, ND
Skin: No rashes.
Neuro: CN 2-12 intact, non-focal.
Psych: Normal mood and affect.
CT A/P:
1. Large indirect right inguinal hernia, containing a large number of small bowel loops. Hernia sac measures 21 x 11 x 8.3 cm. No evidence of incarceration.
2. Mild bilateral hydroureteronephrosis. Ureters are dilated to the level of the urinary bladder. No obstructing stone is appreciated. Findings may be related to bladder outlet obstruction, neurogenic bladder, or occult neoplasm.
3. 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
4. Prostatic enlargement
R inguinal hernia:
-imaging above
-for surgical repair 03/05/25
Permanent Afib:
-cont heparin gtt
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
-cont BB
h/o CVA:
-cont ASA/statin
h/o multiple myeloma
FULL/Heparin
Anticipated Discharge: > 48 hours
Subjective/Interval History
-
Date of Service: March 03, 2025
No new complaints.
Objective Data
-
Labs:
Laboratory Results
03/03/25 03/03/25
02:53 09:30
APTT 60.0 H Pending
Vital Signs:
Vital Signs
Temp Pulse Resp BP Pulse Ox
98.0 F 88 17 149/90 98
03/02/25 23:20 03/02/25 23:20 03/02/25 23:20 03/02/25 23:20 03/02/25 23:20
I&O
03/02/25 03/03/25 03/04/25
06:59 06:59 06:59
Intake Total 540 / 540
Output Total 300 / 300
Balance 240 / 240
--- NOTE | 2025-03-03 09:15 | W.PN.GS2 ---
Addendum entered and electronically signed by Guillaume Griggs MD 03/03/25 09:25:
Patient seen and examined.
No complaints. No voice nausea or vomiting. Passing flatus and BM. No worsening RIGHT groin pain.
Gen: NAD
Abd: soft, NT/ND, palpable RIH, large, soft, reducible
Patient is a 84 yo M with a h/o AFib on Eliquis (LD 03/02 am), CVA while off AC in the past and multiple myeloma presenting with an enlarging known incarcerated right inguinal hernia that has become more painful
AFVSS
Tolerating diet, passed BM today
Plan:
-- Continue with Eliquis on hold with heparin bridge
-- OR planned for robotic/open right inguinal hernia repair Wednesday after Eliquis washout
-- OK for regular diet, NPO after MN Wednesday for OR
-- Medical management as per primary team
Original Note:
Today's Communication / Plan
-
c/w regular diet
Assessment / Plan
-
84 yo male with a h/o AFib on Eliquis (LD 03/02 am), CVA while off AC in the past and multiple myeloma presenting with an enlarging known incarcerated right inguinal hernia that has become more painful
AFVSS
Tolerating diet, passed BM today
Plan:
Continue with Eliquis on hold with heparin bridge
OR planned for robotic/open right inguinal hernia repair Wednesday after Eliquis washout
Ok for regular diet, NPO after MN wednesday for OR
Medical management as per primary team
Subjective Data
-
Date of Service: March 03, 2025
Pt seen and examined at bedside with Dr. Griggs. Denies n/v. Tolerating diet. Passed a BM this morning and flatus. Denies pain.
Objective Data
-
Intake and Output
03/02/25 03/03/25 03/04/25
06:59 06:59 06:59
Intake Total 540 / 540
Output Total 300 / 300
Balance 240 / 240
Intake:
Oral fluids 540 / 540
Output:
Urine, Voided 300 / 300
Other:
Number of approximated MODERATE 2
amounts of urine
Vital Signs
Temp Pulse Resp BP Pulse Ox
98.0 F 88 17 149/90 98
03/02/25 23:20 03/02/25 23:20 03/02/25 23:20 03/02/25 23:20 03/02/25 23:20
Lab Results
03/02/25 12:47
03/02/25 11:30
Calcium 8.6 mg/dl (8.4-10.2) 03/02/25 11:30
Total Bilirubin 0.6 mg/dl (0.2-1.3) 03/02/25 11:30
AST 21 U/L (17-59) 03/02/25 11:30
ALT < 10 U/L (0-50) 03/02/25 11:30
Alkaline Phosphatase 419 U/L (38-126) H 03/02/25 11:30
Total Protein 6.0 g/dl (6.3-8.2) L 03/02/25 11:30
Albumin 3.1 g/dl (3.5-5.0) L 03/02/25 11:30
Physical Exam
-
NAD
ABD soft, nt, large right inguinal hernia which is soft
[2025-03-03] MEDS: COLACE 100 MG PO ×2 (09:17→21:11)
[2025-03-03] MEDS: FEOSOL 325 MG PO ×2 (09:17→21:11)
[2025-03-03] MEDS: VITAMIN D3 (cholecalciferol) 25 MCG PO (09:17)
[2025-03-03] MEDS: LOW STRENGTH ASPIRIN 81 MG PO (09:17)
[2025-03-03] MEDS: PROSCAR 5 MG PO (09:18)
[2025-03-03] MEDS: LIPITOR 5 MG PO (09:18)
[2025-03-03] MEDS: LOPRESSOR 100 MG PO ×2 (09:18→21:11)
[2025-03-03 09:35] LABS: APTT 78.4 Sec (23.4-35.0)
[2025-03-03 12:40] LABS: APTT 73.0 Sec (23.4-35.0)
[2025-03-03 15:09] LABS: APTT 106.1 Sec (23.4-35.0)
[2025-03-03 15:35] VITALS: BP 158/90
[2025-03-03] MEDS: FLOMAX 0.4 MG PO (21:11)
[2025-03-03 23:25] VITALS: BP 157/89
[2025-03-04] MEDS: HEPARIN 25000 UNITS/250 ML IV (01:17)
[2025-03-04 05:48] LABS: Hematocrit 39.3 % (39.0-52.0); Hemoglobin 12.8 g/dL (13.0-18.0); Mean Corp Hgb Conc. 32.6 g/dL (33.0-37.0); Mean Corpuscular Volume 95.6 fL (80.0-94.0); Platelet Count 272 10^3/uL (130-400); Red Cell Dist. Width 13.6 % (11.5-14.5)
[2025-03-04 05:56] LABS: APTT 119.3 Sec (23.4-35.0)
[2025-03-04 07:36] VITALS: BP 146/87
--- NOTE | 2025-03-04 08:23 | W.PN.GS2 ---
Addendum entered and electronically signed by Guillaume Griggs MD 03/04/25 09:33:
Patient seen and examined. Agree with assessment plan as documented below.
Original Note:
Today's Communication / Plan
-
OR tomorrow
Assessment / Plan
-
84 yo male with a h/o AFib on Eliquis (LD 03/02 am), CVA while off AC in the past and multiple myeloma presenting with an enlarging known incarcerated right inguinal hernia that has become more painful
AFVSS
Tolerating diet, passing stools
Plan:
Continue with Eliquis on hold with heparin bridge, hold heparin at 0400 for OR tomorrow
OR planned for robotic/open right inguinal hernia repair Wednesday after Eliquis washout
Ok for regular diet, NPO after MN for OR
Medical management as per primary team
Subjective Data
-
Date of Service: March 04, 2025
Pt seen and examined at bedside with Dr. Griggs. Denies complaints. Tolerating diet
Objective Data
-
Intake and Output
03/03/25 03/04/25 03/05/25
06:59 06:59 06:59
Intake Total 540 / 540 1310 / 1310
Output Total 300 / 300
Balance 240 / 240 1310 / 1310
Intake:
Oral fluids 540 / 540 1310 / 1310
Output:
Urine, Voided 300 / 300
Other:
Number of approximated MODERATE 2 2
amounts of urine
Vital Signs
Temp Pulse Resp BP Pulse Ox
97.4 F 78 16 146/87 99
03/04/25 07:36 03/04/25 07:36 03/04/25 07:36 03/04/25 07:36 03/04/25 07:36
Lab Results
03/04/25 05:18
03/02/25 11:30
Calcium 8.6 mg/dl (8.4-10.2) 03/02/25 11:
Total Bilirubin 0.6 mg/dl (0.2-1.3) 03/02/25 11:
AST 21 U/L (17-59) 03/02/25 11:
ALT < 10 U/L (0-50) 03/02/25 11:
Alkaline Phosphatase 419 U/L (38-126) H 03/02/25 11:30
Total Protein 6.0 g/dl (6.3-8.2) L 03/02/25 11:
Albumin 3.1 g/dl (3.5-5.0) L 03/02/25 11:30
--- NOTE | 2025-03-04 08:24 | W.PN.HOSP.TC ---
Today's Communication/Plan
-
Continue heparin drip (stop at 4 AM tomorrow) for inguinal hernia repair tomorrow.
N.p.o. midnight. IV fluids to start tomorrow morning
Assessment / Plan
Assessment / Plan
Impression
Mr. Vinh Turk is a 84-year-old man with a PMH notable for permanent A-fib, history of CVA, history of multiple myeloma, HTN, H HLD, BPH who presented with
He has not had symptoms of bowel obstruction/incarceration/strangulation. He noticed the hernia 2 years ago did not like to have surgery at, because it did not bother him.
He came to the ED due to the indirect inguinal hernia in his right scrotum increasing in size (very large), which has been associated with nocturia hourly and decreased appetite. He is pretty thin.
States he has difficulties with voiding Borjas, due to the large hernia visible in his right scrotum that presumably compresses his urinary tract.
Plan
CT A/P:
1. Large indirect right inguinal hernia, containing a large number of small bowel loops. Hernia sac measures 21 x 11 x 8.3 cm. No evidence of incarceration.
2. Mild bilateral hydroureteronephrosis. Ureters are dilated to the level of the urinary bladder. No obstructing stone is appreciated. Findings may be related to bladder outlet obstruction, neurogenic bladder, or occult neoplasm.
3. 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
4. Prostatic enlargement
R inguinal hernia:
-imaging above. Leukocytosis 12-13
-for surgical repair (robotic or open) Wednesday03/05/25 after Eliquis washout
�N.p.o. after midnight Wednesday for OR. IV fluids to start the morning of surgery
Permanent Afib:
-cont heparin gtt bridge. Hold at 4 AM 03/05/2025
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
-cont BB metoprolol
Other medical problems:
h/o CVA: cont ASA/statin
h/o multiple myeloma: ALP elevated, on dexamethasone at home reportedly. Follows at [facility]
BPH: Continue finasteride/tamsulosin
FULL/Heparin
Anticipated Discharge: > 48 hours
Subjective/Interval History
-
Date of Service: March 04, 2025
No acute events overnight. Patient had no complaints. Denied abdominal pain, nausea/vomiting, constipation/diarrhea. He has not had symptoms of bowel obstruction/incarceration/strangulation. He noticed the hernia 2 years ago did not like to have
surgery at, because it did not bother him.
He came to the ED due to the indirect inguinal hernia in his right scrotum increasing in size (very large), which has been associated with nocturia hourly and decreased appetite. He is pretty thin.
States he has difficulties with voiding Borjas, due to the large hernia visible in his right scrotum that presumably compresses his urinary tract.
Objective Data
-
Labs:
Hematology and Coagulation - Last 24 hours
03/03/25 03/03/25 03/04/25 Range/Units
12:12 14:49 05:18
WBC 7.4 (4.8-10.8) 10^3/uL
RBC 4.11 L (4.70-6.10) 10^6/uL
Hgb 12.8 L (13.0-18.0) g/dL
Hct 39.3 (39.0-52.0) %
MCV 95.6 H (80.0-94.0) fL
MCH 31.1 H (27.0-31.0) pg
MCHC 32.6 L (33.0-37.0) g/dL
RDW 13.6 (11.5-14.5) %
Plt Count 272 (130-400) 10^3/uL
MPV 9.7 (7.4-10.4) fL
APTT 73.0 H 106.1 H 119.3 H (23.4-35.0) Sec
03/04/25 Range/Units
12:03
WBC (4.8-10.8) 10^3/uL
RBC (4.70-6.10) 10^6/uL
Hgb (13.0-18.0) g/dL
Hct (39.0-52.0) %
MCV (80.0-94.0) fL
MCH (27.0-31.0) pg
MCHC (33.0-37.0) g/dL
RDW (11.5-14.5) %
Plt Count (130-400) 10^3/uL
MPV (7.4-10.4) fL
APTT Pending (23.4-35.0) Sec
Blood Gas and Chemistry - Last 24 hours
03/04/25 Range/Units
05:18
Sodium 136 (135-145) mmol/L
Potassium 3.5 (3.5-5.1) mmol/L
Chloride 101 (98-107) mmol/L
Carbon Dioxide 29 (22-30) mmol/L
BUN 16 (9-20) mg/dl
Creatinine 0.9 (0.7-1.3) mg/dL
Estimated Creat Clear 52 ml/min
eGFR > 60.00
Glucose 95 (70-99) mg/dl
Calcium 8.7 (8.4-10.2) mg/dl
Total Bilirubin 0.6 (0.2-1.3) mg/dl
AST 24 (17-59) U/L
ALT < 10 (0-50) U/L
Alkaline Phosphatase 497 H (38-126) U/L
Total Protein 6.3 (6.3-8.2) g/dl
Albumin 3.3 L (3.5-5.0) g/dl
Blood Bank Tests - Last 24 hours
03/04/25 03/04/25 Range/Units
05:18 06:34
Blood Type A POS
Blood Type Confirm A POS
Antibody Screen Negative (Negative)
Vital Signs:
Vital Signs
Temp Pulse Resp BP Pulse Ox
97.4 F 78 16 146/87 99
03/04/25 07:36 03/04/25 07:36 03/04/25 07:36 03/04/25 07:36 03/04/25 07:36
I&O
03/03/25 03/04/25 03/05/25
06:59 06:59 06:59
Intake Total 540 / 540 1310 / 1310
Output Total 300 / 300
Balance 240 / 240 1310 / 1310
Review of Systems
-
History Source: Patient
All other systems: Reviewed and negative
Constitutional: Reports Weight Loss (States he lost 22 pounds over the last year)
Abdomen/GI: Reports Other (Decreased appetite); Denies Abdominal Pain, Nausea, Vomiting, Diarrhea or Constipated
Genitourinary: Reports Difficulty Voiding (Difficulty emptying Borjas (urinates hourly at night) due to large indirect inguinal hernia in right scrotum, presumably compressing urinary tract)
Physical Exam
-
General: Well Developed, Well Nourished, No Apparent Distress, Comfortable, Conversant and Cachectic (Thin)
HEENT: Normocephalic, Atraumatic, Moist Mucous Membranes, Anicteric, No Ptosis, Nose Appears Normal and Ears Appear Normal; Negative Oxygen
Respiratory: Clear to Auscultation
Cardiac: Regular Rhythm and S1/S2
[2025-03-04] MEDS: PROSCAR 5 MG PO (08:41)
[2025-03-04] MEDS: VITAMIN D3 (cholecalciferol) 25 MCG PO (08:41)
[2025-03-04] MEDS: FEOSOL 325 MG PO ×2 (08:41→20:44)
[2025-03-04] MEDS: LOW STRENGTH ASPIRIN 81 MG PO (08:41)
[2025-03-04] MEDS: COLACE 100 MG PO (08:41)
[2025-03-04] MEDS: LIPITOR 5 MG PO (08:41)
[2025-03-04] MEDS: LOPRESSOR 100 MG PO ×2 (08:42→20:45)
--- NOTE | 2025-03-04 08:43 | W.PN.UPDATE ---
Update Note
Progress Note Update
I saw and evaluated the patient. I reviewed the resident�s note and agree with findings and plan as documented in the resident�s note.
No new complaints.
Gen: NAD, AAOx3.
Eyes: EOMI, PERRLA, no scleral icterus.
Neck: supple.
CV: remains irreg/irreg, +S1/S2, no m/r/g.
Resp: remains CTAB, no rales, wheezes, or rhonchi.
Abd: remains +BS, soft, NT, ND
Skin: No rashes.
Neuro: CN 2-12 intact, non-focal.
Psych: Normal mood and affect.
CT A/P:
1. Large indirect right inguinal hernia, containing a large number of small bowel loops. Hernia sac measures 21 x 11 x 8.3 cm. No evidence of incarceration.
2. Mild bilateral hydroureteronephrosis. Ureters are dilated to the level of the urinary bladder. No obstructing stone is appreciated. Findings may be related to bladder outlet obstruction, neurogenic bladder, or occult neoplasm.
3. 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
4. Prostatic enlargement
R inguinal hernia:
-imaging above
-for surgical repair 03/05/25
Permanent Afib:
-cont heparin gtt
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
-cont BB
h/o CVA:
-cont ASA/statin
h/o multiple myeloma
FULL/Heparin
[2025-03-04 09:21] LABS: ALT (SGPT) < 10 U/L (0-50); AST (SGOT) 24 U/L (17-59); Albumin 3.3 g/dl (3.5-5.0); Alkaline Phosphatase 497 U/L (38-126); Blood Urea Nitrogen 16 mg/dl (9-20); Calcium 8.7 mg/dl (8.4-10.2); Carbon Dioxide 29 mmol/L (22-30); Chloride 101 mmol/L (98-107); Estimated Creatinine Clearance 52 ml/min; Glucose 95 mg/dl (70-99); Potassium 3.5 mmol/L (3.5-5.1); Sodium 136 mmol/L (135-145); Total Protein 6.3 g/dl (6.3-8.2); eGFR > 60.00
[2025-03-04 12:22] LABS: APTT 101.1 Sec (23.4-35.0)
[2025-03-04 15:00] VITALS: BP 152/97
[2025-03-04 18:20] LABS: APTT 107.2 Sec (23.4-35.0)
[2025-03-04] MEDS: COLACE PO (20:44)
[2025-03-04] MEDS: FLOMAX 0.4 MG PO (21:19)
[2025-03-04 23:13] VITALS: BP 119/66
[2025-03-05] VITALS (8 sets, daily range): BP systolic 0–152; BP diastolic 67–87
[2025-03-05 07:23] LABS: Blood Urea Nitrogen 16 mg/dl (9-20); Calcium 9.0 mg/dl (8.4-10.2); Carbon Dioxide 30 mmol/L (22-30); Chloride 100 mmol/L (98-107); Estimated Creatinine Clearance 47 ml/min; Glucose 93 mg/dl (70-99); Potassium 3.4 mmol/L (3.5-5.1); Sodium 135 mmol/L (135-145); eGFR > 60.00
[2025-03-05] MEDS: LOPRESSOR 100 MG PO ×2 (08:00→20:48)
[2025-03-05] MEDS: COLACE PO (08:00)
[2025-03-05] MEDS: LIPITOR 5 MG PO (08:00)
[2025-03-05] MEDS: LOW STRENGTH ASPIRIN 81 MG PO (08:00)
[2025-03-05] MEDS: VITAMIN D3 (cholecalciferol) 25 MCG PO (08:00)
[2025-03-05] MEDS: PROSCAR 5 MG PO (08:02)
[2025-03-05] MEDS: FEOSOL 325 MG PO ×2 (08:03→20:48)
--- NOTE | 2025-03-05 08:06 | W.PN.HOSP.TC ---
Addendum entered and electronically signed by Jin Maria MD 03/05/25 23:18:
Attending Addendum-
I saw and evaluated the patient. I reviewed the resident�s note and agree with findings and plan as documented in the resident�s note. Sub: Seen with and daughter. Saba denies pain fever chills NV. moving bowels. Full 12 point ROS reviewed
and negative except as documented Exam: Vitals reviewed in chart GEN-NAD heart RRR no MRG Lungs clear abd soft LE no edema Right inguinal hernia non reducible
Plan:
#R inguinal hernia:
-OR 03/05 for hernia repair
-high risk OR due to h/o CVA while off ac
-pain control
-hold hep gtt prior to OR
-would resume heparin gtt post op
-resume eliquis 48hours post op
#Permanent Afib:
-heparin gtt on hold for OR
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
-cont metoprolol
# Hypokalemia- replete repeat BMP in am
#h/o CVA: cont ASA/statin
#h/o multiple myeloma:Follows at [facility]
#BPH: Continue finasteride/tamsulosin
FULL/Heparin on hold
Dispo DC in 24-48hrs
ACP
Patient consented to discuss, was with /daughter, time spent explanation of advance directives, changes in health status, patient�s health care wishes if the patient becomes unable to make health decisions, goals of care, code status, and
prognosis, initially per DNI but reversed that wants to be FULL code- 16 minutes
Time spent coordinating care, review of plan of care with resident, personally reviewed previous records in EMR, med rec, labs, radiology, d/w nursing, family total time documented is exclusive of any additional time listed that was spent in advance
care planning discussion - 51�minutes
Original Note:
Today's Communication/Plan
-
OR today
Assessment / Plan
Assessment / Plan
A 84 y/o male with a pmh of multiple myeloma on dexamethasone, afib on eliquis, prior CVA, hypertension, hyperlipidemia, BPH presented upon recommendation of his draw fire operator for anticoagulation with heparin 2 days while Eliquis is being held
prior to elective right inguinal hernia repair surgery in [address] Espana of general surgery. He noticed hernia 2 years ago without any bothersome symptoms. He came to the ED due to the indirect inguinal hernia in his right scrotum increasing
in size which has been associated with nocturia hourly. He states having difficulty with voiding due to the large hernia on his right scrotum that compresses his urinary tract.
His Last Eliquis dose was on 03/02 morning.
indirect right inguinal hernia
-No bowel obstruction/incarceration/strangulation
-Surgery on board
-OR planned for robotic/open right inguinal hernia repair today 03/05 after Eliquis washout
-NPO after midnight wednesday03/04/2025
-started IV fluids today in the morning
-CT abdomen/pelvis:
1. Large indirect right inguinal hernia, containing a large number of small bowel loops. Hernia sac measures 21 x 11 x 8.3 cm. No evidence of incarceration.
2. Mild bilateral hydroureteronephrosis. Ureters are dilated to the level of the urinary bladder. No obstructing stone is appreciated. Findings may be related to bladder outlet obstruction, neurogenic bladder, or occult neoplasm.
3. 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
4. Prostatic enlargement
History of atrial fibrillation
-Continue heparin ggt bridge. Hold at 4 AM 03/05/2025
-Eliquis on hold for OR
-Continue Metoprolol
Electrolyte abnormality
-K 3.4- replete K
History of CVA
-continue aspirin and statin
BPH
-Continue Finasteride and Flomax (tamsulosin)
Multiple Myeloma
-Follows at [facility]
-On Dexamethasone at home reportedly
-elevated ALP 497
DVT ptophylaxis: Heparin
Full code
Anticipated Discharge: 24 - 48 hours
Subjective/Interval History
-
Date of Service: March 05, 2025
No complaints. Denies nausea, vomiting, abdominal pain. Normal bms.
Objective Data
-
Labs:
Laboratory Results
03/05/25
06:28
Sodium 135
Potassium 3.4 L
Chloride 100
Carbon Dioxide 30
BUN 16
Creatinine 1.0
Glucose 93
Calcium 9.0
Vital Signs:
Vital Signs
Temp Pulse Resp BP Pulse Ox
97.9 F 90 16 152/85 99
03/05/25 07:35 03/05/25 08:00 03/05/25 07:35 03/05/25 08:00 03/05/25 07:35
I&O
03/04/25 03/05/25 03/06/25
06:59 06:59 06:59
Intake Total 1310 / 1310 480 / 480
Output Total 620 / 620
Balance 1310 / 1310 -140 / -140
Review of Systems
-
History Source: Patient
Constitutional: Reports No Symptoms
EENT: Reports No Symptoms Reported
Respiratory: Reports No Symptoms
Cardiac: Reports No Symptoms
Abdomen/GI: Reports No Symptoms
Breast: Reports No Symptoms
Genitourinary: Reports No Symptoms
Musculoskeletal: Reports No Symptoms
Skin: Reports No Symptoms
Neuro: Reports No Symptoms
Endocrine: Reports No Symptoms
Hematologic / Lymphatic: Reports No Symptoms
Allergy / Immunology: Reports No Symptoms
Physical Exam
-
General: Well Developed, Well Nourished, No Apparent Distress, Comfortable and Conversant
HEENT: Normocephalic and Atraumatic
Respiratory: Clear to Auscultation
Cardiac: Regular Rhythm and S1/S2
Breast: Deferred by me
GI: Soft, Nontender, Nondistended and Normal Bowel Sounds
Rectal: Deferred by Provider
Genito-urinary: Other (indirect inguinal hernia )
Musculoskeletal: No Clubbing, No Cyanosis and No Edema
Skin: Warm and Dry
Neuro: AO x 3
Hematologic / Lymphatic: No Lymphadenopathy
Psych: Calm
[2025-03-05] MEDS: NSS 1000 IV (09:42)
[2025-03-05] MEDS: KCL 270 MEQ IV (09:56)
--- NOTE | 2025-03-05 10:13 | W.PN.GS2 ---
Today's Communication / Plan
-
OR for inguinal hernia repair
Assessment / Plan
-
84 yo male with a h/o AFib on Eliquis (LD 11/14 am), CVA while off AC in the past and multiple myeloma presenting with an enlarging known incarcerated right inguinal hernia that has become more painful
AFVSS
Passing regular BM's
Plan:
AC on hold for OR
OR planned for robotic/open right inguinal hernia repair today
NPO for OR
Medical management as per primary team
Subjective Data
-
Date of Service: March 05, 2025
Pt seen and examined at bedside with Dr. Philip. Alegria n/v. Passed a BM today. Questions regarding OR addressed
Objective Data
-
Intake and Output
03/04/25 03/05/25 03/06/25
06:59 06:59 06:59
Intake Total 1310 / 1310 480 / 480 270 / 270
Output Total 620 / 620
Balance 1310 / 1310 -140 / -140 270 / 270
Intake:
Oral fluids 1310 / 1310
IV fluids (Total) 480 / 480
IV piggybacks 270 / 270
Output:
Urine, Voided 620 / 620
Other:
Number of approximated MODERATE 2 1 1
amounts of urine
Number of approximated LARGE 1
amounts of urine
Vital Signs
Temp Pulse Resp BP Pulse Ox
97.9 F 90 16 152/85 99
03/05/25 07:35 03/05/25 08:00 03/05/25 07:35 03/05/25 08:00 03/05/25 09:51
Lab Results
03/04/25 05:18
03/05/25 06:28
Calcium 9.0 mg/dl (8.4-10.2) 03/05/25 06:28
Total Bilirubin 0.6 mg/dl (0.2-1.3) 03/04/25 05:18
AST 24 U/L (17-59) 03/04/25 05:18
ALT < 10 U/L (0-50) 03/04/25 05:18
Alkaline Phosphatase 497 U/L (38-126) H 03/04/25 05:18
Total Protein 6.3 g/dl (6.3-8.2) 03/04/25 05:18
Albumin 3.3 g/dl (3.5-5.0) L 03/04/25 05:18
Physical Exam
-
NAD
ABD soft, nt, large right inguinal hernia which is soft
--- NOTE | 2025-03-05 13:18 | W.SUR.PREOP ---
Pre-Operative Surgical Note
-
I have examined this patient prior to the performance of the scheduled procedure.
The patient's condition is unchanged from the time of the current History and
Physical and the patient is able to undergo the scheduled procedure.
--- NOTE | 2025-03-05 15:10 | CM ---
Inguinal hernia repair on this date, 03/05/25. Discharge POC: Anticipate home with no needs.
--- NOTE | 2025-03-05 16:24 | W.IMMPOSTOP ---
Surgical Immed Post Op Note
-
Primary Surgeon: Tye Espana MD
Assisting Surgeon: None
Pre-op Diagnosis: Incarcerated right inguinal hernia
Post-op Diagnosis: Same
Procedure Performed: Open incarcerated right inguinal hernia repair
Anesthesia Type: General
Specimen / Cultures: Right inguinal nerve
Estimated Blood Loss: 7 cc
Complications: None
Operative Findings: Large indirect right inguinal hernia containing incarcerated small bowel reduced after induction of anesthesia. Standard Johan repair with a 3 x 6 inch Bard soft uncoated polypropylene mesh. Due to the size of the
hernia, a 19 Croatian round Noé drain was introduced through a stab incision and passed down into the scrotum.
POST OP PLAN:
Imaging: None
Labs: Routine AM
Diet: Advance to Regular as tolerated
Analgesia: Tylenol 650mg q6 Nicola, tramadol 25 mg every 6 as needed, Dilaudid 0.5mg q2h PRN
Neuro/vascular checks: Per unit protocol
AC/AP: Will plan for heparin drip to start tomorrow if morning labs are okay, Ok for DVT PPx
Activity: Ad Annita
Wound/Incisions/Drains: Routine, MARSHA to bulb suction
Abx: None
Dispo: RNF, anticipate patient staying in the hospital until Wednesday at which point we can hopefully transition him to Eliquis and discharge.
--- NOTE | 2025-03-05 16:28 | OR.RPT ---
Operative Report
Operative Report
Patient Name: Vinh Turk
: 1940
Date of Operation: 03/05/2025
Preoperative Diagnosis: Incarcerated right inguinal hernia
Postoperative Diagnosis: Incarcerated inguinal hernia, spermatic cord lipoma
Procedure(s):
Open incarcerated right inguinal hernia repair with mesh
Surgeon(s):
Dr. Espana
Graphics Specialist(s):
Faustina Kim NP
Anesthesia: General
Estimated Blood Loss: 7 cc
Urine Output: None
Drains/Lines/Implants: 15x7.5cm Bard Soft uncoated polypropylene Mesh cut to size
Specimen / Cultures:
Inguinal nerves x 1
Indication for surgery: The patient has a history of a very large incarcerated right inguinal hernia containing small bowel without any obstructive symptoms or significant pain however recently over the past few weeks this is changed so after
reviewing risk benefits and alternatives the patient was admitted through the ED for transition from Eliquis to heparin drip and consented for open repair.
Operative Findings: Large indirect right inguinal hernia containing incarcerated small bowel reduced after induction of anesthesia. Standard Johan repair with a 3 x 6 inch Bard soft uncoated polypropylene mesh. Due to the size of the
hernia, a 19 Somali round Noé drain was introduced through a stab incision and passed down into the scrotum.
Details of the operation:
After induction of general anesthesia, we were able to successfully reduce the intestinal hernia contents. A Borjas catheter was placed. The patient was clipped, prepped and draped in the supine position. A team timeout was performed confirming
administration of DVT prophylaxis, IV antibiotics and SCDs. The ASIS and pubic tubercle were marked and an incision was chosen along the course of a skin line. The skin was anesthetized with Lidocaine. An incision was made through the skin line and
dissection carried down through subcutaneous tissue and Cisco's fascia. The superficial epigastric vein was identified and ligated. A Small Lee wound retractor was used to provide exposure. The external oblique fibers were then divided in the
direction of travel. The ilioinguinal nerve was identified and resected and sent as a specimen. Dissection was carried down to the floor, which revealed the following:
At the site of the indirect (internal) ring, there was a very large hernia sac was isolated off of the cord structures. The sac was opened and confirmed to have no intra-abdominal contents, the bowel could be seen and appeared to be intact. High
ligation of the sac was performed with a running 2-0 Vicryl suture.
A cord lipoma was also identified and resected.
The direct space, floor of the canal revealed no weakness.
The floor of the canal was then reconstructed by placing a 15 x 7.5 cm Bard soft uncoated polypropylene mesh trimmed to size and secured it in place with interrupted 0-PDS sutures medially at the pubic tubercle, inferiorly along the inguinal
ligament, laterally/superiorly in the conjoint tendon. A slit was made in the mesh just wide enough to accommodate the cord this was also reapproximated with the PDS suture. Care was taken not to injure or entrap any nerves. The external oblique
fibers were then closed using a running 2-0 Vicryl suture. A 19 Somali round Noé drain was then introduced through a stab incision just superior and lateral to our incision, cut to size and passed down into the scrotum. This was secured to the
skin with a 2-0 nylon suture.
Cisco's fascia was then closed with interrupted 3-0 Vicryl suture. The skin was closed in layers with interrupted 3-0 vicryl deep dermals followed by a running subcuticular 4-0 Monocryl followed by dermabond. The patient returned to the Recovery
Room in stable condition. Sponge and instrument counts were correct.
I was the attending physician and performed the procedure with assistance of the SPRAYER LEATHER above. The assistance of the SPRAYER LEATHER was required due to the complexity of the procedure. During the procedure Elisha assisted with retraction, resection, and closure
of the wound. I was present for all portions of the case, excluding skin closure.
Tye Espana MD
--- NOTE | 2025-03-05 17:43 | PTCARENOTE ---
1707 Pt arrived from PACU. VSS. AAOX3. R groin inscion with glue. R MARSHA draining sanguinous fluid
[2025-03-05] MEDS: COLACE 100 MG PO (20:47)
[2025-03-05] MEDS: TYLENOL 650 MG PO (20:48)
[2025-03-05] MEDS: FLOMAX 0.4 MG PO (20:48)
[2025-03-06] MEDS: HEPARIN 5000 UNITS SC ×3 (00:23→21:01)
[2025-03-06 03:12] VITALS: BP 113/67
[2025-03-06] MEDS: NSS IV (04:38)
[2025-03-06] MEDS: TYLENOL PO ×7 (04:38→23:55)
[2025-03-06 07:15] LABS: Hematocrit 34.1 % (39.0-52.0); Hemoglobin 11.4 g/dL (13.0-18.0); Mean Corp Hgb Conc. 33.4 g/dL (33.0-37.0); Mean Corpuscular Volume 95.3 fL (80.0-94.0); Platelet Count 244 10^3/uL (130-400); Red Cell Dist. Width 13.8 % (11.5-14.5)
[2025-03-06 07:45] VITALS: BP 151/92
[2025-03-06 07:56] LABS: Blood Urea Nitrogen 19 mg/dl (9-20); Calcium 8.6 mg/dl (8.4-10.2); Carbon Dioxide 27 mmol/L (22-30); Chloride 103 mmol/L (98-107); Estimated Creatinine Clearance 52 ml/min; Glucose 95 mg/dl (70-99); Potassium 4.1 mmol/L (3.5-5.1); Sodium 128 mmol/L (135-145); eGFR > 60.00
[2025-03-06 08:46] LABS: APTT 30.3 Sec (23.4-35.0)
--- NOTE | 2025-03-06 09:18 | W.PN.HOSP.TC ---
Addendum entered and electronically signed by Jin Maria MD 03/06/25 23:06:
Attending Addendum-
I saw and evaluated the patient. I reviewed the resident�s note and agree with findings and plan as documented in the resident�s note. Sub: Patient denies abd pain, melena or hematochezia. Denies fever chills NV. Passing flatus. Full 10 point ROS
reviewed and negative except as documented Exam: Vitals reviewed in chart GEN-NAD heart RRR no MRG Lungs clear abd soft incision CDI MARSHA drain in place with sero sang draininge LE no edema
Plan:
#R inguinal hernia
-high risk OR due to previous h/o CVA while off ac
-pain control
-held hep gtt prior to OR
-03/05-Open incarcerated right inguinal hernia repair with mesh with MARSHA drain placed
-post op-avoid hep gtt per surgery, ok to start hep DVT proph dose
-resume eliquis 48 hours post op
#Permanent Afib:
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
-cont metoprolol
# Hyponatremia- start IVF, repeat BMP in am
# Hypokalemia- resolved
#h/o CVA: cont ASA/statin
#h/o multiple myeloma:Follows at [facility]
#BPH: Continue finasteride/tamsulosin
FULL
DVTp-heparin
Dispo DC in AM
Time spent coordinating care, review of plan of care with resident, personally reviewed records in EMR, med rec, consults, notes, labs, radiology, d/w nursing,surgery � 51 mins
Original Note:
Today's Communication/Plan
-
Hold on therapeutic anticoagulation/heparin ggt
Assessment / Plan
Assessment / Plan
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
prior to elective right inguinal hernia repair surgery in [address] Espana of general surgery. He noticed hernia 2 years ago without any bothersome symptoms. He came to the ED due to the indirect inguinal hernia in his right scrotum increasing
in size which has been associated with nocturia hourly. He states having difficulty with voiding due to the large hernia on his right scrotum that compresses his urinary tract.
His Last Eliquis dose was on 03/02 morning.
indirect right inguinal hernia
-No bowel obstruction/incarceration/strangulation
-Surgery on board
-Had robotic/open right inguinal hernia repair on 03/05 after Eliquis washout
-Regular diet as tolerated
-Hb 11.4, drain output serosanguinous- hold on therapeutic anticoag/heparin ggt
-Continue Heparin for DVT prophylaxis + Aspirin for now
-Drain expected to be on site for a week
-Ordered Incentive Spirometry
-CT abdomen/pelvis:
1. Large indirect right inguinal hernia, containing a large number of small bowel loops. Hernia sac measures 21 x 11 x 8.3 cm. No evidence of incarceration.
2. Mild bilateral hydroureteronephrosis. Ureters are dilated to the level of the urinary bladder. No obstructing stone is appreciated. Findings may be related to bladder outlet obstruction, neurogenic bladder, or occult neoplasm.
3. 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
4. Prostatic enlargement
History of atrial fibrillation
-Hold heparin ggt
-Eliquis on hold for OR
-Continue Metoprolol
Electrolyte abnormality
-K 3.4- replete K
-Na 128- Start IVF 75ml/hr
History of CVA
-continue aspirin and statin
BPH
-Continue Finasteride and Flomax (tamsulosin)
Multiple Myeloma
-Follows at [facility]
-On Dexamethasone at home reportedly
-elevated ALP 497
DVT ptophylaxis: Heparin
Full code
Anticipated Discharge: 24 - 48 hours
Subjective/Interval History
-
Date of Service: March 06, 2025
He had a surgery yesterday. He feels good overall. Denies abdominal pain, nausea, vomiting. He was able to have bm this morning.
Objective Data
-
Labs:
Laboratory Results
03/06/25 03/06/25
06:54 08:17
WBC 8.4
Hgb 11.4 L
Hct 34.1 L
Plt Count 244
APTT 30.3
Sodium 128 L
Potassium 4.1
Chloride 103
Carbon Dioxide 27
BUN 19
Creatinine 0.9
Glucose 95
Calcium 8.6
Vital Signs:
Vital Signs
Temp Pulse Resp BP Pulse Ox
98.0 F 79 15 151/92 100
03/06/25 07:45 03/06/25 07:45 03/06/25 07:45 03/06/25 07:45 03/06/25 07:45
I&O
03/05/25 03/06/25 03/07/25
06:59 06:59 06:59
Intake Total 480 / 480 1470 / 1470
Output Total 620 / 620 350 / 350
Balance -140 / -140 1120 / 1120
Review of Systems
-
History Source: Patient
Constitutional: Reports No Symptoms
EENT: Reports No Symptoms Reported
Respiratory: Reports No Symptoms
Cardiac: Reports No Symptoms
Abdomen/GI: Reports No Symptoms
Breast: Reports No Symptoms
Genitourinary: Reports No Symptoms
Musculoskeletal: Reports No Symptoms
Skin: Reports No Symptoms
Neuro: Reports No Symptoms
Endocrine: Reports No Symptoms
Hematologic / Lymphatic: Reports No Symptoms
Allergy / Immunology: Reports No Symptoms
Physical Exam
-
General: Well Developed, Well Nourished, No Apparent Distress, Comfortable and Conversant
HEENT: Normocephalic and Atraumatic
Respiratory: Clear to Auscultation
Cardiac: Regular Rhythm and S1/S2
Breast: Deferred by me
GI: Soft, Nontender, Nondistended and Normal Bowel Sounds
Rectal: Deferred by Provider
Musculoskeletal: No Clubbing, No Cyanosis and No Edema
Skin: Warm, Dry and Other (dressing on abdomen on surgery site, drain on right side)
Neuro: AO x 3
Hematologic / Lymphatic: No Lymphadenopathy
Psych: Calm
[2025-03-06] MEDS: LIPITOR 5 MG PO (09:25)
[2025-03-06] MEDS: LOW STRENGTH ASPIRIN 81 MG PO (09:26)
[2025-03-06] MEDS: VITAMIN D3 (cholecalciferol) 25 MCG PO (09:26)
[2025-03-06] MEDS: LOPRESSOR 100 MG PO ×2 (09:26→21:02)
[2025-03-06] MEDS: PROSCAR 5 MG PO (09:26)
[2025-03-06] MEDS: FEOSOL 325 MG PO ×2 (09:26→21:01)
[2025-03-06] MEDS: TYLENOL 650 MG PO (09:27)
[2025-03-06] MEDS: COLACE PO (09:27)
--- NOTE | 2025-03-06 10:01 | W.PN.GS2 ---
Today's Communication / Plan
-
Okay for regular diet
Would continue holding off therapeutic anticoagulation/heparin drip as drain is still little bit bloody and hemoglobin did drop 1 point.
Okay for DVT prophylaxis.
Out of bed and ambulate as able.
Ice packs.
Scrotal pillow
Assessment / Plan
-
84 yo male with a h/o AFib on Eliquis (LD 11/14 am), CVA while off AC in the past and multiple myeloma presenting with an enlarging known incarcerated right inguinal hernia that has become more painful. POD #1 open incarcerated right inguinal
hernia repair with mesh.
Plan:
Okay for regular diet
Would continue holding off therapeutic anticoagulation/heparin drip as drain is still little bit bloody and hemoglobin did drop 1 point.
Okay for DVT prophylaxis.
Out of bed and ambulate as able.
Ice packs.
Scrotal pillow
Time Spent
Total Time Spent with Patient (in minutes): 20
Subjective Data
-
Date of Service: March 06, 2025
Interval Events:
No acute events overnight. Slept well. Pain Controlled. Denies Nausea/Vomiting, +bowel function. Tolerating diet.
Objective Data
-
Intake and Output
03/05/25 03/06/25 03/07/25
06:59 06:59 06:59
Intake Total 480 / 480 1470 / 1470
Output Total 620 / 620 350 / 350 10 10
Balance -140 / -140 1120 / 1120 -10 / -10
Intake:
Oral fluids 480 / 480
IV fluids (Total) 480 / 480 720 / 720
IV piggybacks 270 / 270
Output:
Drain Output (Total) 50 / 50 10
Right Lower Abdomen Bryce- 50 / 50 10
Wise
Urine, Flores 300 / 300
Urine, Voided 620 / 620
Other:
Number of approximated SMALL 1 1
amounts of urine
Number of approximated MODERATE 1 1
amounts of urine
Number of approximated LARGE 1
amounts of urine
Vital Signs
Temp Pulse Resp BP Pulse Ox
98.0 F 80 15 166/71 100
03/06/25 07:45 03/06/25 09:26 03/06/25 07:45 03/06/25 09:26 03/06/25 07:45
Lab Results
03/06/25 06:54
03/06/25 06:54
Calcium 8.6 mg/dl (8.4-10.2) 03/06/25 06:54
Total Bilirubin 0.6 mg/dl (0.2-1.3) 03/04/25 05:18
AST 24 U/L (17-59) 03/04/25 05:18
ALT < 10 U/L (0-50) 03/04/25 05:18
Alkaline Phosphatase 497 U/L (38-126) H 03/04/25 05:18
Total Protein 6.3 g/dl (6.3-8.2) 03/04/25 05:18
Albumin 3.3 g/dl (3.5-5.0) L 03/04/25 05:18
Physical Exam
-
GENERAL/NEURO: Awake, Alert, no distress
CHEST: Unlabored breathing on RA
ABDOMEN: Soft, Non-Tender, Non-Distended, incision clean dry and intact, some swelling noted. MARSHA bloody
Patient has a flores catheter: No
Patient has a central line: No
[2025-03-06 11:35] VITALS: BP 154/87
--- NOTE | 2025-03-06 11:39 | CM ---
Patient seen at bedside
TT from UR LOC change to inpatient
IMM explained & signed. In chart
Inguinal hernia repair on this date, 03/05/25
PLAN: home, watch for VN needs for drain
[2025-03-06] MEDS: NSS 1000 IV (12:05)
[2025-03-06 15:25] VITALS: BP 156/88
[2025-03-06] MEDS: COLACE 100 MG PO (20:59)
[2025-03-06] MEDS: FLOMAX 0.4 MG PO (21:01)
[2025-03-06 23:00] VITALS: BP 162/89
[2025-03-07] MEDS: NSS 1000 IV (03:04)
--- NOTE | 2025-03-07 03:33 | DOWNTIME ---
There was a [employer] Client Chief Dog License Inspector Downtime on 03/07/2025 from 0100 to 03/07/2025 at 0255. Downtime documentation of patient's care, including medication administrations, has been reconciled in the electronic record per guidelines. Refer to the
patient's paper chart under the miscellaneous tab to see printed paper medication records and downtime forms.
[2025-03-07] MEDS: TYLENOL PO ×4 (04:36→20:00)
[2025-03-07 06:36] LABS: Hematocrit 35.0 % (39.0-52.0); Hemoglobin 11.6 g/dL (13.0-18.0); Mean Corp Hgb Conc. 33.1 g/dL (33.0-37.0); Mean Corpuscular Volume 92.8 fL (80.0-94.0); Platelet Count 243 10^3/uL (130-400); Red Cell Dist. Width 14.2 % (11.5-14.5)
[2025-03-07 06:42] LABS: APTT 30.4 Sec (23.4-35.0)
[2025-03-07 06:47] LABS: Blood Urea Nitrogen 17 mg/dl (9-20); Calcium 8.7 mg/dl (8.4-10.2); Carbon Dioxide 26 mmol/L (22-30); Chloride 105 mmol/L (98-107); Estimated Creatinine Clearance 52 ml/min; Glucose 88 mg/dl (70-99); Potassium 4.0 mmol/L (3.5-5.1); Sodium 133 mmol/L (135-145); eGFR > 60.00
--- NOTE | 2025-03-07 07:28 | W.PN.HOSP.TC ---
Addendum entered and electronically signed by Jin Maria MD 03/07/25 22:45:
Attending Addendum-
I saw and evaluated the patient. I reviewed the resident�s note and agree with findings and plan as documented in the resident�s note. Sub: NAEON, Patient denies abd pain, melena or hematochezia. Denies fever chills NV. Passing flatus. Full 10 point
ROS reviewed and negative except as documented Exam: Vitals reviewed in chart GEN-NAD heart RRR no MRG Lungs clear abd soft incision CDI MARSHA drain in place with sero sang drainage LE no edema
Plan:
#R inguinal hernia
-high risk surgery due to previous h/o CVA while off ac
-03/05-Open incarcerated right inguinal hernia repair with mesh with MARSHA drain placed
-restart hep gtt follow aptt
-resume eliquis 72 hours post op, in AM
#Permanent Afib
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
-cont metoprolol
# Hyponatremia-improved s/p IVF, repeat BMP in am
# Hypokalemia- resolved
#h/o CVA: cont ASA/statin
#h/o multiple myeloma:Follows at [facility]
#BPH: Continue finasteride/tamsulosin
FULL
DVTp-heparin gtt
Dispo DC in AM to home
Time spent coordinating care, review of plan of care with resident, personally reviewed records in EMR, med rec, consults, notes, labs, radiology, d/w nursing,surgery � 52 mins
Original Note:
Today's Communication/Plan
-
Start Heparin ggt switch to ELiquis at 8:00 AM tm
Monitor APTT
Assessment / Plan
Assessment / Plan
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
prior to elective right inguinal hernia repair surgery in [address] Espana of general surgery. He noticed hernia 2 years ago without any bothersome symptoms. He came to the ED due to the indirect inguinal hernia in his right scrotum increasing
in size which has been associated with nocturia hourly. He states having difficulty with voiding due to the large hernia on his right scrotum that compresses his urinary tract.
His Last Eliquis dose was on 03/02 morning.
indirect right inguinal hernia
-No bowel obstruction/incarceration/strangulation
-Surgery on board
-Had robotic/open right inguinal hernia repair on 03/05 after Eliquis washout
-Regular diet as tolerated
--Ordered Incentive Spirometry
-03/06 Hb 11.4, drain output serosanguinous- hold on therapeutic anticoag/heparin ggt
-03/07 Stable Hb - Started heparin ggt today switch to Eliquis 2,5mg BID at 8AM 03/08.
-Stop DVT prophylaxis
-Drain stays for a week
-Monitor APTT
-CT abdomen/pelvis:
1. Large indirect right inguinal hernia, containing a large number of small bowel loops. Hernia sac measures 21 x 11 x 8.3 cm. No evidence of incarceration.
2. Mild bilateral hydroureteronephrosis. Ureters are dilated to the level of the urinary bladder. No obstructing stone is appreciated. Findings may be related to bladder outlet obstruction, neurogenic bladder, or occult neoplasm.
3. 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
4. Prostatic enlargement
Dysuria
- Ongoing for a month. R/o UTI
- Ordered UA
History of atrial fibrillation
-continu heparin ggt
-Resume Eliquis tm if Hb stable
-Continue Metoprolol
Electrolyte abnormality
-K 3.4- replete K
-Na 128- Start IVF 75ml/hr
History of CVA
-continue aspirin and statin
BPH
-Continue Finasteride and Flomax (tamsulosin)
Multiple Myeloma
-Follows at [facility]
-On Dexamethasone at home reportedly
-elevated ALP 497
DVT ptophylaxis: Heparin
Full code
Anticipated Discharge: 24 - 48 hours
Subjective/Interval History
-
Date of Service: March 07, 2025
Overall as he is stating feeling good. He denies abdominal pain, nausea, vomiting. He has burning feeling with urinating. He had a lot of bowel movements yesterday. He has been walking.
Objective Data
-
Labs:
Laboratory Results
03/07/25
06:00
WBC 6.8
Hgb 11.6 L
Hct 35.0 L
Plt Count 243
APTT 30.4
Sodium 133 L
Potassium 4.0
Chloride 105
Carbon Dioxide 26
BUN 17
Creatinine 0.9
Glucose 88
Calcium 8.7
Vital Signs:
Vital Signs
Temp Pulse Resp BP Pulse Ox
97.8 F 85 16 162/89 99
03/06/25 23:00 03/06/25 23:00 03/06/25 23:00 03/06/25 23:00 03/06/25 23:00
I&O
03/06/25 03/07/25 03/08/25
06:59 06:59 06:59
Intake Total 1470 / 1470 2770 / 2770
Output Total 350 / 350 55 / 55
Balance 1120 / 1120 2715 / 2715
Review of Systems
-
History Source: Patient
Constitutional: Reports No Symptoms
EENT: Reports No Symptoms Reported
Respiratory: Reports No Symptoms
Cardiac: Reports No Symptoms
Abdomen/GI: Reports No Symptoms
Breast: Reports No Symptoms
Genitourinary: Reports Dysuria
Musculoskeletal: Reports No Symptoms
Skin: Reports No Symptoms
Neuro: Reports No Symptoms
Endocrine: Reports No Symptoms
Hematologic / Lymphatic: Reports No Symptoms
Allergy / Immunology: Reports No Symptoms
Physical Exam
-
General: Well Developed, Well Nourished, No Apparent Distress, Comfortable and Conversant
HEENT: Normocephalic and Atraumatic
Respiratory: Clear to Auscultation
Cardiac: Regular Rhythm and S1/S2
Breast: Deferred by me
GI: Soft, Nontender, Nondistended and Normal Bowel Sounds
Rectal: Deferred by Provider
Musculoskeletal: No Clubbing, No Cyanosis and No Edema
Skin: Warm, Dry and Other (dressing on abdomen on surgery site, drain on right side)
Neuro: AO x 3
Hematologic / Lymphatic: No Lymphadenopathy
Psych: Calm
[2025-03-07 07:45] VITALS: BP 139/88
[2025-03-07] MEDS: TYLENOL 650 MG PO (08:49)
[2025-03-07] MEDS: LOPRESSOR 100 MG PO ×2 (08:49→20:00)
[2025-03-07] MEDS: FEOSOL 325 MG PO ×2 (08:50→20:02)
[2025-03-07] MEDS: COLACE 100 MG PO ×2 (08:50→20:02)
[2025-03-07] MEDS: PROSCAR 5 MG PO (08:50)
[2025-03-07] MEDS: LIPITOR 5 MG PO (08:50)
[2025-03-07] MEDS: LOW STRENGTH ASPIRIN 81 MG PO (08:50)
[2025-03-07] MEDS: VITAMIN D3 (cholecalciferol) 25 MCG PO (08:50)
[2025-03-07] MEDS: HEPARIN 5000 UNITS SC (08:52)
--- NOTE | 2025-03-07 09:27 | W.PN.GS2 ---
Today's Communication / Plan
-
Okay for heparin drip no bolus
Assessment / Plan
-
84 yo male with a h/o AFib on Eliquis (LD 11/14 am), CVA while off AC in the past and multiple myeloma presenting with an enlarging known incarcerated right inguinal hernia that has become more painful. POD #2 open incarcerated right inguinal
hernia repair with mesh. Doing well, expected postoperative course.
Plan:
Okay for heparin drip, no bolus
Stop DVT prophylaxis.
Continue regular diet
Out of bed and ambulate as able.
Ice packs.
Scrotal pillow
Anticipate discharge home as early as tomorrow if hemoglobin stable on heparin drip with transition to new home dose of Eliquis 2.5 mg twice daily. He will also go home with a drain so we will need drain teaching and VNA set up. I will see him
back in the office early next week to have the drain removed.
Time Spent
Total Time Spent with Patient (in minutes): 20
Subjective Data
-
Date of Service: March 07, 2025
Interval Events:
No acute events overnight. Slept well. Pain Controlled. Denies Nausea/Vomiting, +bowel function. Tolerating diet.
Objective Data
-
Intake and Output
03/06/25 03/07/25 03/08/25
06:59 06:59 06:59
Intake Total 1470 / 1470 2770 / 2770
Output Total 350 / 350 55 / 55
Balance 1120 / 1120 2715 / 2715
Intake:
Oral fluids 480 / 480 1870 / 1870
IV fluids (Total) 720 / 720 900 / 900
IV piggybacks 270 / 270
Output:
Drain Output (Total) 50 / 50 55 / 55
Right Lower Abdomen Bryce- 50 / 50 55 / 55
Wise
Urine, Flores 300 / 300
Other:
Number of approximated SMALL 1 1
amounts of urine
Number of approximated MODERATE 1 1
amounts of urine
Number of approximated LARGE 1
amounts of urine
Vital Signs
Temp Pulse Resp BP Pulse Ox
97.9 F 104 16 139/88 99
03/07/25 07:45 03/07/25 08:49 03/07/25 07:45 03/07/25 08:49 03/07/25 07:45
Lab Results
03/07/25 06:00
03/07/25 06:00
Calcium 8.7 mg/dl (8.4-10.2) 03/07/25 06:00
Total Bilirubin 0.6 mg/dl (0.2-1.3) 03/04/25 05:18
AST 24 U/L (17-59) 03/04/25 05:18
ALT < 10 U/L (0-50) 03/04/25 05:18
Alkaline Phosphatase 497 U/L (38-126) H 03/04/25 05:18
Total Protein 6.3 g/dl (6.3-8.2) 03/04/25 05:18
Albumin 3.3 g/dl (3.5-5.0) L 03/04/25 05:18
Physical Exam
-
GENERAL/NEURO: Awake, Alert, no distress
CHEST: Unlabored breathing on RA
ABDOMEN: Soft, Non-Tender, Non-Distended, incision clean dry and intact, mild swelling noted. MARSHA serosanguineous
Patient has a flores catheter: No
Patient has a central line: No
[2025-03-07 12:09] LABS: Hematocrit 32.1 % (39.0-52.0); Hemoglobin 10.9 g/dL (13.0-18.0); Mean Corp Hgb Conc. 34.0 g/dL (33.0-37.0); Mean Corpuscular Volume 90.4 fL (80.0-94.0); Platelet Count 234 10^3/uL (130-400); Red Cell Dist. Width 14.1 % (11.5-14.5)
[2025-03-07 12:19] LABS: APTT 31.6 Sec (23.4-35.0)
[2025-03-07] MEDS: HEPARIN 25000 UNITS/250 ML IV (12:57)
[2025-03-07 13:06] LABS: Urine Character Clear (Clear)
[2025-03-07 14:01] LABS: Urine Squamous Cell 0-2 /LPF (Few)
--- NOTE | 2025-03-07 15:11 | CM ---
Addendum entered by Stella Granados 03/07/25 15:18:
IMM benefit explained; form signed @ 1515
Original Note:
Met with patient at bedside and spoke with patient's via phone per his request
Home Health/[facility] recommendation explained; both are agreeable; agency options discussed; preference is [facility]; referral sent and acknowledged
Plan: Discharge to home with home health tomorrow
--- NOTE | 2025-03-07 15:23 | VNURNOTE ---
Home Health Liaison spoke with patient's spouse to discuss [facility] nurse/therapy, visits, schedule and homebound status. Spouse is agreeable and understands that visits at home will be 2-3 x per week to assess and teach medical and drain management.
Spouse is aware that [facility] will contact them for start of care within a few days after discharge from . Provided contact number for [facility].
[facility] referral completed in [facility].
[2025-03-07 15:35] VITALS: BP 137/76
[2025-03-07] MEDS: NSS IV (16:27)
[2025-03-07 19:38] LABS: APTT 103.2 Sec (23.4-35.0)
[2025-03-07] MEDS: FLOMAX 0.4 MG PO (21:04)
[2025-03-07 22:42] LABS: Urine Character Clear (Clear)
[2025-03-07 23:03] LABS: Urine Red Blood Cell 0-2 /HPF (0-2); Urine Squamous Cell 0-2 /LPF (Few); Urine White Cell 0-2 /HPF (0-5)
[2025-03-07 23:12] VITALS: BP 159/97
[2025-03-08 02:01] LABS: APTT 145.8 Sec (23.4-35.0)
[2025-03-08] MEDS: TYLENOL PO ×3 (04:00→10:09)
[2025-03-08 07:30] VITALS: BP 150/94
--- NOTE | 2025-03-08 07:44 | W.PN.HOSP.TC ---
Addendum entered and electronically signed by Jin Maria MD 03/08/25 22:03:
Attending Addendum-
I saw and evaluated the patient. I reviewed the resident�s note and agree with findings and plan as documented in the resident�s note. Sub: Feels great ready to go home. Patient denies abd pain, melena or hematochezia. Denies fever chills NV. Full
10 point ROS reviewed and negative except as documented Exam: Vitals reviewed in chart GEN-NAD heart RRR no MRG Lungs clear abd soft incision CDI MARSHA drain in place with minimal sero sang drainage LE no edema
Plan:
#Rt ID inguinal hernia
-high risk surgery due to previous h/o CVA while off ac
-03/05-POD#3-Open incarcerated right inguinal hernia repair with mesh with MARSHA drain placed
-restart eliquis
#Permanent Afib
-resume eliquis
-cont metoprolol
# Hyponatremia-resolved
# Hypokalemia- resolved
#h/o CVA: cont ASA/statin
#h/o multiple myeloma:Follows at [facility]
#BPH: Continue finasteride/tamsulosin
FULL
Time spent coordinating care, DC planning, review of DC plan of care with resident, transition of care, review of records, med rec/scripts sent electronically, consults, notes, d/w consultants, nursing, and CM� 32 mins >50% of this time was devoted
to counseling and coordination of care
Original Note:
Today's Communication/Plan
-
Discharge
Assessment / Plan
Assessment / Plan
A 84 y/o male with a pmh of multiple myeloma on dexamethasone, afib on eliquis, prior CVA, hypertension, hyperlipidemia, BPH presented upon recommendation of his council on aging director for anticoagulation with heparin 2 days while Eliquis is being held
prior to elective right inguinal hernia repair surgery in [address] Espana of general surgery. He noticed hernia 2 years ago without any bothersome symptoms. He came to the ED due to the indirect inguinal hernia in his right scrotum increasing
in size which has been associated with nocturia hourly. He states having difficulty with voiding due to the large hernia on his right scrotum that compresses his urinary tract.
His Last Eliquis dose was on 03/02 morning.
indirect right inguinal hernia
-No bowel obstruction/incarceration/strangulation
-Surgery on board
-Had robotic/open right inguinal hernia repair on 03/05 after Eliquis washout
-Regular diet as tolerated
--Ordered Incentive Spirometry
-03/06 Hb 11.4, drain output serosanguinous- hold on therapeutic anticoag/heparin ggt
-03/08 Stable Hb 11.4 - switched heparin ggt to Eliquis 2,5mg BID this morning
-Stop DVT prophylaxis
-Drain stays for a week - CM for Drain teaching, [facility] setup
-Discharge
-CT abdomen/pelvis:
1. Large indirect right inguinal hernia, containing a large number of small bowel loops. Hernia sac measures 21 x 11 x 8.3 cm. No evidence of incarceration.
2. Mild bilateral hydroureteronephrosis. Ureters are dilated to the level of the urinary bladder. No obstructing stone is appreciated. Findings may be related to bladder outlet obstruction, neurogenic bladder, or occult neoplasm.
3. 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
4. Prostatic enlargement
Dysuria
- Ongoing for a month. R/o UTI
- Ordered UA - NEG
- symptoms improved
History of atrial fibrillation
-discontinue heparin ggt
-Resumed Eliquis
-Continue Metoprolol 100mg BID
Electrolyte abnormality
-K 3.4- replete K
-Na 128- Start IVF 75ml/hr - DC IV fluid. PO fluid intake
-Improved
History of CVA
-continue aspirin and statin
BPH
-Continue Finasteride and Flomax (tamsulosin)
Multiple Myeloma
-Follows at [facility]
-On Dexamethasone at home reportedly
-elevated ALP 497
DVT ptophylaxis: Heparin
Full code
Anticipated Discharge: Today
Subjective/Interval History
-
Date of Service: March 08, 2025
He is comfortable. Denies abdominal pain, nausea, vomiting.
Objective Data
-
Labs:
Laboratory Results
03/08/25 03/08/25 03/08/25
01:17 06:00 08:00
WBC Pending
Hgb Pending
Hct Pending
Plt Count Pending
APTT 145.8 H Cancelled Pending
Sodium Pending
Potassium Pending
Chloride Pending
Carbon Dioxide Pending
BUN Pending
Creatinine Pending
Glucose Pending
Calcium Pending
Vital Signs:
Vital Signs
Temp Pulse Resp BP Pulse Ox
98.3 F 87 17 159/97 99
03/07/25 23:12 03/07/25 23:12 03/07/25 23:12 03/07/25 23:12 03/07/25 23:12
I&O
03/07/25 03/08/25 03/09/25
06:59 06:59 06:59
Intake Total 2770 / 2770 720 / 720
Output Total 55 / 55 1015 / 1015
Balance 2715 / 2715 -295 / -295
Review of Systems
-
History Source: Patient
Constitutional: Reports No Symptoms
EENT: Reports No Symptoms Reported
Respiratory: Reports No Symptoms
Cardiac: Reports No Symptoms
Abdomen/GI: Reports No Symptoms
Breast: Reports No Symptoms
Genitourinary: Reports No Symptoms
Musculoskeletal: Reports No Symptoms
Skin: Reports No Symptoms
Neuro: Reports No Symptoms
Endocrine: Reports No Symptoms
Hematologic / Lymphatic: Reports No Symptoms
Allergy / Immunology: Reports No Symptoms
Physical Exam
-
General: Well Developed, Well Nourished, No Apparent Distress, Comfortable and Conversant
HEENT: Normocephalic and Atraumatic
Respiratory: Clear to Auscultation
Cardiac: Regular Rhythm and S1/S2
Breast: Deferred by me
GI: Soft, Nontender, Nondistended and Normal Bowel Sounds
Rectal: Deferred by Provider
Musculoskeletal: No Clubbing, No Cyanosis and No Edema
Skin: Warm, Dry and Other (dressing on abdomen on surgery site, drain on right side)
Neuro: AO x 3
Hematologic / Lymphatic: No Lymphadenopathy
Psych: Calm
[2025-03-08 08:15] LABS: Hematocrit 33.3 % (39.0-52.0); Hemoglobin 11.4 g/dL (13.0-18.0); Mean Corp Hgb Conc. 34.2 g/dL (33.0-37.0); Mean Corpuscular Volume 91.2 fL (80.0-94.0); Platelet Count 221 10^3/uL (130-400); Red Cell Dist. Width 14.0 % (11.5-14.5)
[2025-03-08 08:25] LABS: APTT 88.3 Sec (23.4-35.0)
[2025-03-08 09:52] LABS: Blood Urea Nitrogen 12 mg/dl (9-20); Calcium 8.4 mg/dl (8.4-10.2); Carbon Dioxide 28 mmol/L (22-30); Chloride 102 mmol/L (98-107); Estimated Creatinine Clearance 58 ml/min; Glucose 82 mg/dl (70-99); Potassium 3.6 mmol/L (3.5-5.1); Sodium 131 mmol/L (135-145); eGFR > 60.00
[2025-03-08] MEDS: COLACE PO (10:07)
[2025-03-08] MEDS: ELIQUIS 2.5 MG PO (10:08)
[2025-03-08] MEDS: LOW STRENGTH ASPIRIN 81 MG PO (10:08)
[2025-03-08] MEDS: LOPRESSOR 100 MG PO (10:08)
[2025-03-08] MEDS: VITAMIN D3 (cholecalciferol) 25 MCG PO (10:08)
[2025-03-08] MEDS: PROSCAR 5 MG PO (10:08)
[2025-03-08] MEDS: FEOSOL 325 MG PO (10:09)
[2025-03-08] MEDS: LIPITOR 5 MG PO (10:09)
--- NOTE | 2025-03-08 10:27 | CM ---
Patient seen at bedside
discharge today
IMM explained & signed. In chart
referral in [facility] - accepted
PLAN: home with [facility]
and dtr to transport
--- NOTE | 2025-03-08 11:02 | W.PN.GS2 ---
Today's Communication / Plan
-
Dispo planning
Assessment / Plan
-
84 yo male with a h/o AFib on Eliquis (LD 11/14 am), CVA while off AC in the past and multiple myeloma presenting with an enlarging known incarcerated right inguinal hernia that has become more painful. POD #3 open incarcerated right inguinal
hernia repair with mesh. Doing well, expected postoperative course.
Plan:
Okay for Eliquis 2.5 mg twice daily.
Continue regular diet
Out of bed and ambulate as able.
Okay for discharge from a surgery perspective. He will also go home with a drain so we will need drain teaching and [facility] set up. I will see him back in the office early next week to have the drain removed.
Time Spent
Total Time Spent with Patient (in minutes): 20
Subjective Data
-
Date of Service: March 08, 2025
Interval Events:
No acute events overnight. Slept well. Pain Controlled. Denies Nausea/Vomiting, +bowel function. Tolerating diet.
Objective Data
-
Intake and Output
03/07/25 03/08/25 03/09/25
06:59 06:59 06:59
Intake Total 2770 / 2770 720 / 720 240 / 240
Output Total 1015 / 1015 405 / 405
Balance 2715 / 2715 -295 / -295 -165 / -165
Intake:
Oral fluids 1870 / 1870 720 / 720 240 / 240
IV fluids (Total) 900 / 900
Output:
Drain Output (Total) 40 5
Right Lower Abdomen Bryce- 5
Wise
Urine, Voided 975 / 975 400 / 400
Other:
Number of approximated SMALL 1
amounts of urine
Number of approximated MODERATE 1 3
amounts of urine
Number of approximated LARGE 1
amounts of urine
Vital Signs
Temp Pulse Resp BP Pulse Ox
98.3 F 104 16 136/70 99
03/08/25 07:30 03/08/25 10:08 03/08/25 07:30 03/08/25 10:08 03/08/25 07:30
Lab Results
03/08/25 08:07
03/08/25 08:07
Calcium 8.4 mg/dl (8.4-10.2) 03/08/25 08:07
Total Bilirubin 0.6 mg/dl (0.2-1.3) 03/04/25 05:18
AST 24 U/L (17-59) 03/04/25 05:18
ALT < 10 U/L (0-50) 03/04/25 05:18
Alkaline Phosphatase 497 U/L (38-126) H 03/04/25 05:18
Total Protein 6.3 g/dl (6.3-8.2) 03/04/25 05:18
Albumin 3.3 g/dl (3.5-5.0) L 03/04/25 05:18
Physical Exam
-
GENERAL/NEURO: Awake, Alert, no distress
CHEST: Unlabored breathing on RA
ABDOMEN: Soft, Non-Tender, Non-Distended, incision clean dry and intact, expected swelling, drain with serosanguineous output.
Patient has a flores catheter: No
Patient has a central line: No
[2025-03-08 14:13] VITALS: BP 162/85
--- NOTE | 2025-03-08 16:20 | W.DCSUMMARY ---
Addendum entered and electronically signed by Jin Maria MD 03/08/25 22:04:
Read, reviewed, and agree. See same day progress note for additional details. change admission date to 03/02.
Ramon Maria MD
Original Note:
Documented by User: Yasmeen Buitrago MD, Resident 03/08/25 17:45
Discharge Summary
Discharge Data
Date of Admission: 03/06/25
Date of Discharge: 03/08/25
-
Pending Results: No
Hospital Course
Discharging Physician : Dr. Yasmeen Buitrago, Dr. Jin Maria
Disposition : Home
Primary care physician : Omar Calloway
Principal Discharge diagnosis : Incarcerated right inguinal hernia. Open right inguinal hernia repair with mesh.
Chronic Discharge diagnosis : hypertension, dyslipidemia, CVA, inguinal hernia, hypertension
Hospital Course : Mr. Turk is a 84y/o male with a history of multiple myeloma on dexamethasone, atrial fibrillation on Eliquis, prior CVA, hypertension, hyperlipidemia presented at the direction of his surgical team for admission. Patient has
had a right inguinal hernia for many years which has slowly gotten bigger. He was seen by Dr. Espana as an outpatient who recommended surgery. 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
surgery. He had robotic/open right inguinal hernia repair with mesh on 03/05 after Eliquis washout. Doing well, expected postoperative course.
He is going home with a drain. He had a drain teaching and [facility] set up.
Dr. Espana will see him at the office early next week to have drain removed.
Important imaging findings :
CT Abd/pel W Iv And Oral Contrast
1. Large indirect right inguinal hernia, containing a large number of small bowel loops. Hernia sac measures 21 x 11 x 8.3 cm. No evidence of incarceration.
2. Mild bilateral hydroureteronephrosis. Ureters are dilated to the level of the urinary bladder. No obstructing stone is appreciated. Findings may be related to bladder outlet obstruction, neurogenic bladder, or occult neoplasm.
3. 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
4. Prostatic enlargement
Discharge Plan
-
Patient Disposition: Home (Routine Discharge)
Discharge Diagnosis/Procedures: Incarcerated right inguinal hernia. Open right inguinal hernia repair with mesh.
Condition: Good
Diet: No restrictions
Activity: No strenuous activity
Driving Restrictions: As prior to admission
Bathing Restrictions: OK to Shower
Activity Restrictions/Additional Instructions:
Instructions following open inguinal Hernia Repair
Please call [phone] if you have any questions or concerns after your surgery.
Wound Care:
Your incisions are covered with skin glue which will come off on its own in 5-10 days.
It is ok to shower the day after your surgery. Do not scrub the incisions, let soap and water wash over them and pat dry.
� Bruising around your incisions is normal.
� Using ice packs will help minimize this swelling.
� No swimming or soaking incisions for 1 week.
� Your stitches will dissolve and do not need to be removed.
Wear compression underwear or briefs, do not wear boxers or loose-fitting underwear.
Urinary retention:
If you are unable to urinate 6-8 hours after your surgery, please call [phone] to discuss further management.
Activity:
No heavy lifting more than 15 pounds for the next 3 weeks, then you may gradually lift heavier objects as tolerated by discomfort. Otherwise activity as tolerated by your comfort level.
Pain Management:
� You may take 650 milligrams of Tylenol (Max 3 grams per day) every 6 hours.
� You may use an ice pack to your incision as needed.
� If you still have pain not controlled by these measures, take your prescription pain medication if prescribed.
Medications:
You may resume your home medications.
Bowel Medications:
Prescription pain medication can make you constipated. If you take this medication, also take colace 100 mg twice daily (this is over the counter). If this is not sufficient, you may take Miralax (polyethylene glycol) to help move your bowels.
Diet:
After your procedure, there are no dietary restrictions.
Driving restrictions:
No driving if you are taking prescription pain medication or if you think your normal reaction time and attentiveness has been slowed by your surgery.
Things to Look out for:
Worsening Abdominal pain, redness or drainage from incision
Call Doctor for:
Please call if you notice worsening redness or drainage from incision(s) lasting longer than 5 days after your surgery, any foul-smelling drainage from the incision, pain not controlled by pain medications, persistent nausea and vomiting, or for any
fevers greater than 101.3 F. The number for questions/concerns is [phone]
Follow-up:
You have a follow-up appointment scheduled for Wednesday at 2:30 PM. Please call prior to your appointment if you have any questions or concerns. [phone]
MARSHA DRAIN CARE INSTRUCTIONS
General Information:
Drains help to keep fluid from collecting by removing the extra blood and fluid from under the skin. A drain is temporary. It stays in place until the drainage has slowed down or stopped. Your doctor or nurse will decide when each drain should be
removed: This is usually after each drain has 30cc or less in 24 hours for 2 days in a row. When this happens, you should call the [facility] to schedule an appointment with the nurses to have it/them removed. This is usually not painful
and only takes a few seconds.
How do I care for the drains at home?
Pin your drains to your clothing by using a safety pin through the plastic loop on the top of the bulb. If the drain is not attached to your clothing, it may pull out from under your skin. Also, a drain usually feels more comfortable when it�s
attached. To care for the drain at home, you will have to empty the drain, ``strip�� the drain tubing, and change the dressing if applicable. See the following pages for instructions on how to do this.
What problems may I have with my drain?
� The bulb is not compressed- The bulb may not be squeezed tightly enough, the plug may not be closed securely, or the tube has slipped out a bit and is leaking. Follow the instructions on how to empty the drain.
If the bulb remains expanded, then notify your doctor or nurse during business hours.
� No drainage or sudden decrease in amount of drainage- This is usually due to clots in the drain. Follow the instructions on how to strip the drain tubing.
� The tube accidentally falls out- If this happens, place a dry gauze dressing over the drain site and notify your doctor or nurse during business hours.
� Increased redness, swelling, or heat around the tube insertion site- This may be a sign of infection. Take your temperature: if it is higher than 101F or 38.8C, call your doctor or nurse immediately. Otherwise, notify your doctor or nurse during
business hours and keep the dressing clean and dry.
Post-Surgical Drain Care:
After surgery, you will have one or two drains, called a Bryce-Wise (MARSHA) drain, placed near the incision. This device collects fluid, under suction, from your surgical area. The drain promotes healing and recovery, and reduces the chance of
infection. The drain will be in place until the drainage slows enough for your body to reabsorb fluid on its own. While you are hospitalized the nursing staff will care for the drain and teach you to continue to do so at home.
How to Empty Your MARSHA Drain
Note: Wash your hands thoroughly before emptying your drain(s).
� Have the plastic measuring cup from the hospital ready to collect and measure the drainage. Please measure the output at the same two times every 24 hours and record the amount.
� Unpin the drain from your clothing.
Open the top of the drain. Turn the drain upside down and squeeze the contents of the bulb into the measuring cup. Be sure to empty the bulb as completely as possible. Flush the contents in the toilet.
� Use the drain output log chart to record the amount of drainage twice a day or any time the bulb is full. Record the total for 24 hours for each drain you have.
� If you have more than one drain, remember to record the drainage from each drain separately.
� To prevent infection, do not let the stopper or top of the bottle touch the measuring cup or any other surface.
� Use one hand to squeeze all of the air from the drain. With the drain still squeezed, use your other hand to replace the top. This creates the suction necessary to remove the fluids from your body.
� Pin the drain back on your clothing to avoid pulling it out accidently.
� Wash your hands again. Remember to wash your hands before and after the procedure to reduce the risk of infection.
Stripping the Tube
Often the tube may become blocked with products of healing or clot. If you do not have drainage, then:
� Hold the tube near where it is inserted in to the skin with your one hand.
� Use the other hand to hold a pencil and gently squeeze the tubing with the pencil while moving it down toward the drain away from your skin. This forces the more sold material into the bulb for better drainage.
� Repeat as necessary to start the draining again.
Removal of the Tube
� The tube may be removed once a single tube output is less than 30cc (1 oz.) for 24 hours. Please call the office to arrange a time to come in to have the drain removed.
� Please call the office [phone] if the output becomes thicker or has a bad odor or if you have any questions or concerns
Referrals:
Omar Calloway MD [Family Provider] - in less than 1 week
Tye Espana MD [Active, Surgical]
Prescriptions:
Continued
metoprolol tartrate [Lopressor] 100 mg Tablet
100 mg PO BID
ferrous sulfate 325 mg (65 mg iron) Tablet
325 mg PO BID
finasteride 5 mg Tablet
5 mg PO DAILY
cholecalciferol (vitamin D3) [Vitamin D3] 25 mcg (1,000 unit) Tablet
25 mcg PO DAILY
Eliquis 2.5 mg Tablet
2.5 mg PO BID
acetaminophen 325 MG tablet
650 mg PO Q6HPRN PRN (Reason: mild PAIN)
atorvastatin 10 MG tablet
5 mg PO DAILY
tamsulosin 0.4 MG capsule
0.4 mg PO HS Qty: 30 0RF
aspirin 81 MG tablet,chewable
81 mg PO DAILY Qty: 30 0RF
docusate sodium 100 MG capsule
100 mg PO BID Qty: 60 0RF
Discharge Orders:
Discharge Patient (As Directed); Ordered 03/08/25
Ordered By: Yasmeen Buitrago
Discharge Date and Time
Discharge Date/Time: 03/08/25 14:38
Print Language: CAMEROONIAN

Documented by User: Jin Maria MD 03/08/25 22:00
Discharge Summary
Discharge Data
Date of Admission: 03/06/25
Date of Discharge: 03/08/25
Discharge Plan
-
Patient Disposition: Home (Routine Discharge)
Discharge Diagnosis/Procedures: Incarcerated right inguinal hernia. Open right inguinal hernia repair with mesh.
Condition: Good
Diet: No restrictions
Activity: No strenuous activity
Driving Restrictions: As prior to admission
Bathing Restrictions: OK to Shower
Activity Restrictions/Additional Instructions:
Instructions following open inguinal Hernia Repair
Please call [phone] if you have any questions or concerns after your surgery.
Wound Care:
Your incisions are covered with skin glue which will come off on its own in 5-10 days.
It is ok to shower the day after your surgery. Do not scrub the incisions, let soap and water wash over them and pat dry.
� Bruising around your incisions is normal.
� Using ice packs will help minimize this swelling.
� No swimming or soaking incisions for 1 week.
� Your stitches will dissolve and do not need to be removed.
Wear compression underwear or briefs, do not wear boxers or loose-fitting underwear.
Urinary retention:
If you are unable to urinate 6-8 hours after your surgery, please call [phone] to discuss further management.
Activity:
No heavy lifting more than 15 pounds for the next 3 weeks, then you may gradually lift heavier objects as tolerated by discomfort. Otherwise activity as tolerated by your comfort level.
Pain Management:
� You may take 650 milligrams of Tylenol (Max 3 grams per day) every 6 hours.
� You may use an ice pack to your incision as needed.
� If you still have pain not controlled by these measures, take your prescription pain medication if prescribed.
Medications:
You may resume your home medications.
Bowel Medications:
Prescription pain medication can make you constipated. If you take this medication, also take colace 100 mg twice daily (this is over the counter). If this is not sufficient, you may take Miralax (polyethylene glycol) to help move your bowels.
Diet:
After your procedure, there are no dietary restrictions.
Driving restrictions:
No driving if you are taking prescription pain medication or if you think your normal reaction time and attentiveness has been slowed by your surgery.
Things to Look out for:
Worsening Abdominal pain, redness or drainage from incision
Call Doctor for:
Please call if you notice worsening redness or drainage from incision(s) lasting longer than 5 days after your surgery, any foul-smelling drainage from the incision, pain not controlled by pain medications, persistent nausea and vomiting, or for any
fevers greater than 101.3 F. The number for questions/concerns is [phone]
Follow-up:
You have a follow-up appointment scheduled for Wednesday at 2:30 PM. Please call prior to your appointment if you have any questions or concerns. [phone]
MARSHA DRAIN CARE INSTRUCTIONS
General Information:
Drains help to keep fluid from collecting by removing the extra blood and fluid from under the skin. A drain is temporary. It stays in place until the drainage has slowed down or stopped. Your doctor or nurse will decide when each drain should be
removed: This is usually after each drain has 30cc or less in 24 hours for 2 days in a row. When this happens, you should call the [facility] to schedule an appointment with the nurses to have it/them removed. This is usually not painful
and only takes a few seconds.
How do I care for the drains at home?
Pin your drains to your clothing by using a safety pin through the plastic loop on the top of the bulb. If the drain is not attached to your clothing, it may pull out from under your skin. Also, a drain usually feels more comfortable when it�s
attached. To care for the drain at home, you will have to empty the drain, ``strip�� the drain tubing, and change the dressing if applicable. See the following pages for instructions on how to do this.
What problems may I have with my drain?
� The bulb is not compressed- The bulb may not be squeezed tightly enough, the plug may not be closed securely, or the tube has slipped out a bit and is leaking. Follow the instructions on how to empty the drain.
If the bulb remains expanded, then notify your doctor or nurse during business hours.
� No drainage or sudden decrease in amount of drainage- This is usually due to clots in the drain. Follow the instructions on how to strip the drain tubing.
� The tube accidentally falls out- If this happens, place a dry gauze dressing over the drain site and notify your doctor or nurse during business hours.
� Increased redness, swelling, or heat around the tube insertion site- This may be a sign of infection. Take your temperature: if it is higher than 101F or 38.8C, call your doctor or nurse immediately. Otherwise, notify your doctor or nurse during
business hours and keep the dressing clean and dry.
Post-Surgical Drain Care:
After surgery, you will have one or two drains, called a Bryce-Wise (MARSHA) drain, placed near the incision. This device collects fluid, under suction, from your surgical area. The drain promotes healing and recovery, and reduces the chance of
infection. The drain will be in place until the drainage slows enough for your body to reabsorb fluid on its own. While you are hospitalized the nursing staff will care for the drain and teach you to continue to do so at home.
How to Empty Your MARSHA Drain
Note: Wash your hands thoroughly before emptying your drain(s).
� Have the plastic measuring cup from the hospital ready to collect and measure the drainage. Please measure the output at the same two times every 24 hours and record the amount.
� Unpin the drain from your clothing.
Open the top of the drain. Turn the drain upside down and squeeze the contents of the bulb into the measuring cup. Be sure to empty the bulb as completely as possible. Flush the contents in the toilet.
� Use the drain output log chart to record the amount of drainage twice a day or any time the bulb is full. Record the total for 24 hours for each drain you have.
� If you have more than one drain, remember to record the drainage from each drain separately.
� To prevent infection, do not let the stopper or top of the bottle touch the measuring cup or any other surface.
� Use one hand to squeeze all of the air from the drain. With the drain still squeezed, use your other hand to replace the top. This creates the suction necessary to remove the fluids from your body.
� Pin the drain back on your clothing to avoid pulling it out accidently.
� Wash your hands again. Remember to wash your hands before and after the procedure to reduce the risk of infection.
Stripping the Tube
Often the tube may become blocked with products of healing or clot. If you do not have drainage, then:
� Hold the tube near where it is inserted in to the skin with your one hand.
� Use the other hand to hold a pencil and gently squeeze the tubing with the pencil while moving it down toward the drain away from your skin. This forces the more sold material into the bulb for better drainage.
� Repeat as necessary to start the draining again.
Removal of the Tube
� The tube may be removed once a single tube output is less than 30cc (1 oz.) for 24 hours. Please call the office to arrange a time to come in to have the drain removed.
� Please call the office [phone] if the output becomes thicker or has a bad odor or if you have any questions or concerns
Referrals:
Omar Calloway MD [Family Provider] - in less than 1 week
Tye Espana MD [Active, Surgical]
Prescriptions:
Continued
metoprolol tartrate [Lopressor] 100 mg Tablet
100 mg PO BID
ferrous sulfate 325 mg (65 mg iron) Tablet
325 mg PO BID
finasteride 5 mg Tablet
5 mg PO DAILY
cholecalciferol (vitamin D3) [Vitamin D3] 25 mcg (1,000 unit) Tablet
25 mcg PO DAILY
Eliquis 2.5 mg Tablet
2.5 mg PO BID
acetaminophen 325 MG tablet
650 mg PO Q6HPRN PRN (Reason: mild PAIN)
atorvastatin 10 MG tablet
5 mg PO DAILY
tamsulosin 0.4 MG capsule
0.4 mg PO HS Qty: 30 0RF
aspirin 81 MG tablet,chewable
81 mg PO DAILY Qty: 30 0RF
docusate sodium 100 MG capsule
100 mg PO BID Qty: 60 0RF
Discharge Orders:
Discharge Patient (As Directed); Ordered 03/08/25
Ordered By: Yasmeen Buitrago
Discharge Date and Time
Discharge Date/Time: 03/08/25 14:38
Print Language: CAMEROONIAN
== END 2025-03-08 14:38 | disposition home health service (06) | DRG 351 ==
LOC: 2 SOUTH 09:34
PROVIDERS: Internal Medicine; Physician Assistant; Registered Nurse; ADMITTING PHYSICIAN Hospitalist; ATTENDING PHYSICIAN Family Medicine; CONSULT PHYSICIAN Surgery; EMERGENCY PHYSICIAN Emergency Medicine; FAMILY PHYSICIAN Internal Medicine
PROC: 8E0W0CZ Robotic Assisted Procedure of Trunk Region, Open Approach (ICD-10-PCS; 2025-03-05)
PROC: 0YU50JZ Supplement Right Inguinal Region with Synthetic Substitute, Open Approach (ICD-10-PCS; 2025-03-05)
DX: K40.30 Unilateral inguinal hernia, with obstruction, without gangrene, not specified as recurrent (principal); C90.00 Multiple myeloma not having achieved remission; E87.1 Hypo-osmolality and hyponatremia; I48.21 Permanent atrial fibrillation; N13.39 Other hydronephrosis; Z79.01 Long term (current) use of anticoagulants; E87.6 Hypokalemia; Z87.891 Personal history of nicotine dependence; Z86.73 Personal history of transient ischemic attack (TIA), and cerebral infarction without residual deficits; I12.9 Hypertensive chronic kidney disease with stage 1 through stage 4 chronic kidney disease, or unspecified chronic kidney disease; Z79.82 Long term (current) use of aspirin; Z79.899 Other long term (current) drug therapy
CPT/HCPCS: 74177; 80048; 80053; 81003; 81015; 85025; 85027; 85610; 85730; 86850; 86900; 86901; 88304; 99284; Q9967